=== PATIENT | female | born 1960 | race Caucasian/White ===

== ENCOUNTER 2019-01-21 18:58 | Inpatient (IN) | payer MEDICAID ==
[2019-01-21] MEDS ORDERED: LORazepam 2 MG/ML SDV IVPUSH ONE (19:40)
--- NOTE | 2019-01-21 19:48 | EDM.PDOC ---
ED HPI GENERAL MEDICAL PROBLEM - General Chief Complaint: General Stated Complaint: BROKEN RIB Time Seen by Provider: 01/21/19 19:35 Source of Information: Reports: Patient History Limitations: Reports: No Limitations - History of Present Illness INITIAL COMMENTS - FREE TEXT/NARRATIVE: Ita is a 58 year old female with a hx of chronic pain, presents to the ED today with c/o left anterior rib pain. Patient was seen in clinic yesterday diagnosed with rib fracture. She was discharged home, patient twisted today and pain became unbearable, unrelieved with her chronic oxycodone at home. Patient denies any fever, has had productive cough for the last week which is different from her non productive cough she typically has from smoking. Patient denies every falling, states when she coughed hard yesterday she heard the "crack" and that is when she developed the initial rib pain. Patient denies any hemoptysis. Patient was given 25 mcg of Fentanyl prior to arrival with improvement in her symptoms. Onset: Today, Sudden Treatments HOME HEALTH ADMINISTRATOR: Reports: IV/IO, Other (see below) Other Treatments HOME HEALTH ADMINISTRATOR: Fent 25mcg IVP Left Rib Area Pain Score (Numeric/FACES): 8 - Related Data Allergies Allergy/AdvReac Type Severity Reaction Status Date / Time meperidine [From Demerol] Allergy Hives Verified 01/21/19 19:16 prochlorperazine Allergy Cannot Verified 01/21/19 19:16 [From Compazine] Remember Sulfa (Sulfonamide Allergy Hives Verified 01/21/19 19:16 Antibiotics) Home Meds: Home Meds Amitriptyline HCl 200 mg PO BEDTIME 01/21/19 [History] Cyclobenzaprine [Flexeril] 10 mg PO TID 01/21/19 [History] Ibuprofen 800 mg PO Q8HR PRN 01/21/19 [History] Levothyroxine Sodium [Levoxyl] 50 mcg PO DAILY 01/21/19 [History] Liraglutide [Victoza 3-Brigido] 1.2 mg SQ DAILY 01/21/19 [History] Propranolol HCl 40 mg PO BID 01/21/19 [History] Pyridostigmine [Mestinon] 60 mg PO TID 01/21/19 [History] atorvaSTATin Calcium [Atorvastatin Calcium] 10 mg PO DAILY 01/21/19 [History] hydrOXYzine HCl [hydrOXYzine] 25 mg PO DAILY 01/21/19 [History] metFORMIN HCl [Metformin HCl] 1,000 mg PO BID 01/21/19 [History] oxyCODONE 10 mg PO Q6HR PRN 01/21/19 [History] Social & Family History - Tobacco Use Smoking Status *Q: Current Every Day Smoker Years of Tobacco use: 40 Packs/Tins Daily: 1 Second Hand Smoke Exposure: No - Caffeine Use Caffeine Use: Reports: Coffee - Recreational Drug Use Recreational Drug Use: No ED ROS GENERAL - Review of Systems Review Of Systems: ROS reveals no pertinent complaints other than HPI. ED EXAM, GENERAL - Physical Exam Exam: See Below Exam Limited By: No Limitations General Appearance: Alert, WD/WN, Other (appear uncomfortable) Head: Atraumatic Respiratory/Chest: Other (course lungs bilaterally, anterior lower left ribs are tender to palpation,no step offs or crepitus, no evidence of ecchymosis) Cardiovascular: Regular Rate, Rhythm, No Murmur Extremities: Other (patient has CAM boot on right LE, dressing on left knee) Neurological: Alert, Oriented Course - Vital Signs Last Recorded V/S: Last Vital Signs Temp 35.8 C 01/21/19 19:06 Pulse 62 01/21/19 21:05 Resp 12 01/21/19 21:05 BP 120/76 01/21/19 21:05 Pulse Ox 94 L 01/21/19 21:05 Ita is a 58 year old female, hx of myasthenia gravis, hypothyroidism, Chronic bilateral ankle pain, on chronic oxycodone who presents to the ED today with complaints of severe left rib pain. Please refer to HPI and focused exam. Patient on exam is tender to left anterior lower rib region, lungs are course but likely this is coming from upper airways as patient sounds congested. Patient was given IV Ativan here which did help with pain/symptoms. CT of chest obtained to rule out any more significant findings, CT scan returns with mildly displaced lateral rib fractures of left 5th, 6th, 7th left rib with 2.1 x 1.7 cm spiculated mass at the right lung that is worrisome for lung cancer, PET CT recommended. Pulmonary emphysema with small pericardial and left pleural effusion. There is a 2 cm incidental cystic lesion at the tail of the pancreas, radiology recommends further imaging, preferable with MRI/MRCP. Patient sleepy here after Ativan. I feel with her chronic pain, course lungs and multiple rib fractures that she should come in overnight for paint control and ongoing monitoring. Daughter here reports that patient is the primary rn progressive care for her who has COPD and mother in law with dementia who is a fall risk. Patient spoke with and he agrees patient should stay here. I did discuss CT findings with patient and daughter and let them know that the lung mass concerns and pancreatic concerns will have to be addressed with PCP this week for further testing/imaging. I discussed patient's case with hospitalist, Officer, he has accepted patient for admission, patient and daughter agreeable and patient admitted in stable condition. - Orders/Labs/Meds Orders: Active Orders 24 hr Category Date Time Status RT Aerosol Therapy [RC] ASDIRECTED Care 01/21/19 21:21 Ordered Meds: Medications Discontinued Medications Generic Name Dose Route Start Last Admin Trade Name Freq PRN Reason Stop Dose Admin Albuterol/Ipratropium 3 ml 01/21/19 21:20 Duoneb 3.0-0.5 Mg/3 Ml NEB 01/21/19 21:21 ONETIME ONE Lorazepam 1 mg 01/21/19 19:40 01/21/19 19:59 Ativan IVPUSH 01/21/19 19:41 1 mg ONETIME ONE Administration Departure - Departure Time of Disposition: 22:00 Disposition: Admitted As Inpatient 66 Condition: Fair Clinical Impression: Mass of right lung, Pleural effusion, Pericardial effusion, Cystic mass of pancreas Ribs, multiple fractures Qualifiers: Encounter type: initial encounter Fracture type: closed Laterality: left Qualified Code(s): S22.42XA - Multiple fractures of ribs, left side, initial encounter for closed fracture Chronic pain Qualifiers: Chronic pain type: chronic pain syndrome Qualified Code(s): G89.4 - Chronic pain syndrome - Discharge Information Referrals: Cesar Iglesias MD [Primary Care Provider] - Forms: ED Department Discharge - My Orders Last 24 Hours: My Active Orders 01/21/19 21:21 RT Aerosol Therapy [RC] ASDIRECTED - Assessment/Plan Last 24 Hours: My Active Orders 01/21/19 21:21 RT Aerosol Therapy [RC] ASDIRECTED
--- NOTE | 2019-01-21 21:05 | CRLCT ---
INDICATION: Left anterior chest wall pain. TECHNIQUE: Unenhanced helical CT of the chest. Sagittal and coronal reformats generated.Please note that all CT scans at this facility status modulation, iterative reconstruction and/or weight- based dosing when appropriate to reduce radiation dose to as low as reasonably achievable. FINDINGS: Median sternotomy wires are present and there are multiple surgical clips within the mediastinum extending into the retrosternal region. The partially visualized thyroid gland is homogeneous in density. Predominantly centrilobular pulmonary emphysematous changes most prominent in the upper lobes. There is a spiculated 2.1 x 1.7 cm mass at the right lung apex worrisome for a lung cancer. No pneumothorax is identified. Areas of subsegmental atelectasis are present particularly at the left lung base. Small pericardial an left pleural effusion. Incidental 2 cm cystic mass the tail of the pancreas. Mildly displaced lateral 5th, 6th and 7th left-sided rib fractures are apparent. IMPRESSION: 1. Mildly displaced lateral left 5th, 6th and 7th rib fractures. 2. 2.1 x 1.7 cm spiculated mass at the right lung may packs worrisome for a lung cancer. Consider PET-CT. 3. Pulmonary emphysema. 4. Small pericardial left pleural effusions. 5. 2 cm incidental cystic lesion at the tail of the pancreas. Consider further imaging characterization preferably with MRI/MRCP. Please note that all CT scans at this facility use dose modulation, iterative reconstruction, and/or weight-based dosing when appropriate to reduce radiation dose to as low as reasonably achievable. Dictated by Ferdinand Walters MD @ Jan 21 2019 8:48PM Signed by Dr. Ferdinand Walters @ Jan 21 2019 9:04PM
[2019-01-21] MEDS ORDERED: Albuterol/Ipratropium 3.0-0.5 MG/3 ML Neb Soln NEB ONE (21:20)
[2019-01-21] MEDS ORDERED: Sodium Chloride 0.9% 10 ML Syringe FLUSH PRN (22:25)
[2019-01-21] MEDS ORDERED: Ondansetron 4 MG/2 ML SDV IV PRN (22:25)
--- NOTE | 2019-01-21 22:38 | PCM.HP ---
H&P History of Present Illness - General Date of Service: 01/21/19 Admit Problem/Dx: Admission Diagnosis/Problem Admission Diagnosis/Problem Pain aggravated by breathing Source of Information: Patient, Family, RN Notes Reviewed History Limitations: Reports: No Limitations - History of Present Illness Initial Comments - Free Text/Narative: 58-year-old female presented to the emergency department today complaint of chest pain, she was evaluated in the clinic earlier today and found to have a rib fracture #5 on chest x-ray was treated symptomatically. However she believes she may have coughed or twisted wrong sudden onset of severe chest pain on the left side reported to the emergency department via EMS services. Under evaluation by emergency department staff which included a CAT scan of the chest revealed rib fractures at 56 and 7 minimally displaced also noted a lung mass in the right apex. She does have an extensive smoking history as well as emphysema, and diabetes also myasthenia gravis with a history of thymectomy, hypothyroidism and opioid dependence. Left Rib Area Pain Score (Numeric/FACES): 8 - Related Data Allergies/Adverse Reactions: Allergies Allergy/AdvReac Type Severity Reaction Status Date / Time meperidine [From Demerol] Allergy Hives Verified 01/21/19 19:16 prochlorperazine Allergy Cannot Verified 01/21/19 19:16 [From Compazine] Remember Sulfa (Sulfonamide Allergy Hives Verified 01/21/19 19:16 Antibiotics) Home Medications: Home Meds Amitriptyline HCl 200 mg PO BEDTIME 01/21/19 [History] Cyclobenzaprine [Flexeril] 10 mg PO TID 01/21/19 [History] Ibuprofen 800 mg PO Q8HR PRN 01/21/19 [History] Levothyroxine Sodium [Levoxyl] 50 mcg PO DAILY 01/21/19 [History] Liraglutide [Victoza 3-Brigido] 1.2 mg SQ DAILY 01/21/19 [History] Propranolol HCl 40 mg PO BID 01/21/19 [History] Pyridostigmine [Mestinon] 60 mg PO TID 01/21/19 [History] atorvaSTATin Calcium [Atorvastatin Calcium] 10 mg PO DAILY 01/21/19 [History] hydrOXYzine HCl [hydrOXYzine] 25 mg PO DAILY 01/21/19 [History] metFORMIN HCl [Metformin HCl] 1,000 mg PO BID 01/21/19 [History] oxyCODONE 10 mg PO Q6HR PRN 01/21/19 [History] Past Medical History HEENT History: Reports: Hard of Hearing, Impaired Vision Cardiovascular History: Reports: High Cholesterol INDUSTRIAL INSULATOR History: Reports: Musculoskeletal History: Reports: Osteoarthritis, Other (See Below) Other Musculoskeletal History: TMJ Neurological History: Reports: Migraines, Other (See Below) Other Neuro History: Myasthenia gravis Psychiatric History: Reports: Addiction, Other (See Below) Other Psychiatric History: tobacco abuse Endocrine/Metabolic History: Reports: Diabetes, Type II, Hypothyroidism - Infectious Disease History Infectious Disease History: Reports: Chicken Pox - Past Surgical History Musculoskeletal Surgical History: Reports: Other (See Below) Other Musculoskeletal Surgeries/Procedures:: right foot surgery Social & Family History - Family History Family Medical History: Unobtainable - Tobacco Use Smoking Status *Q: Current Every Day Smoker Years of Tobacco use: 40 Packs/Tins Daily: 1 Second Hand Smoke Exposure: No - Caffeine Use Caffeine Use: Reports: Coffee - Recreational Drug Use Recreational Drug Use: No H&P Review of Systems - Review of Systems: Review Of Systems: See Below General: Reports: No Symptoms HEENT: Reports: No Symptoms Pulmonary: Reports: Shortness of Breath (With a deep breath) Cardiovascular: Reports: Chest Pain, Dyspnea on Exertion Gastrointestinal: Reports: No Symptoms Genitourinary: Reports: No Symptoms Musculoskeletal: Reports: No Symptoms Skin: Reports: No Symptoms Psychiatric: Reports: No Symptoms Neurological: Reports: No Symptoms Exam - Exam Exam: See Below - Vital Signs Vital Signs: Last Vital Signs Temp 96.4 F 01/21/19 19:06 Pulse 62 01/21/19 21:48 Resp 12 01/21/19 21:05 BP 120/82 01/21/19 21:48 Pulse Ox 97 01/21/19 21:48 Weight: 68.039 kg - Exam Physical Exam Comments:: General: Female, not in any distress, appears older than stated age, alert and oriented x3 HEENT: head is atraumatic normocephalic, eyes pupils equal round reactive to light, sclera clear no conjunctivitis appreciated. Ears tympanic membranes clear and bacon landmarks and light reflex are present bilaterally canals are clear. Nose no septal deviation, nares are clear, no blood present. Mouth mucosa is moist and pink no erythema or exudate noted in soft palate, tongue is midline uvula is midline, dentition is intact. Neck: Supple no thyromegaly no tracheal deviation. Nodes: Cervical nodes subclavicular nodes nontender no palpable lymphadenopathy noted. Lungs: Breath sounds are distant no adventitious noises are appreciated CV: Regular rate and rhythm S1 and S2 appreciated no murmurs rubs or gallops noted. Abdomen: Soft, nontender, no palpable masses or organomegaly appreciated, no distention no guarding bowel sounds are present, Neuro: GCS 15 Skin: Warm and dry, intact Extremities: No lower extremity edema appreciated on the left, she is in an ankle boot cam walker on the right, pedal pulse is +2. - Problem List (1) Cystic mass of pancreas SNOMED Code(s): 40442399 ICD Code: K86.2 - CYST OF PANCREAS Status: Acute Priority: Medium Current Visit: Yes (2) Mass of right lung SNOMED Code(s): 777290456 ICD Code: R91.8 - OTHER NONSPECIFIC ABNORMAL FINDING OF LUNG FIELD Status: Acute Priority: Medium Current Visit: Yes (3) Ribs, multiple fractures SNOMED Code(s): 2601721 ICD Code: S22.49XA - MULTIPLE FRACTURES OF RIBS, UNSP SIDE, INIT FOR CLOS FX Status: Acute Priority: High Current Visit: Yes Qualifiers: Encounter type: initial encounter Fracture type: closed Laterality: left Qualified Code(s): S22.42XA - Multiple fractures of ribs, left side, initial encounter for closed fracture Problem List Initiated/Reviewed/Updated: Yes Orders Last 24hrs: Active Orders 24 hr Category Date Time Status Patient Status [ADT] Routine ADT 01/21/19 22:25 Ordered Height and Weight [RC] UPON Care 01/21/19 22:25 Ordered Intake and Output [RC] QSHIFT Care 01/21/19 22:27 Ordered Oxygen Therapy [RC] PRN Care 01/21/19 22:25 Ordered RT Aerosol Therapy [RC] ASDIRECTED Care 01/21/19 21:21 Active Up With Assistance [RC] ASDIRECTED Care 01/21/19 22:25 Ordered VTE/DVT Education [RC] Per Unit Routine Care 01/21/19 22:25 Ordered Vital Signs [RC] Q4H Care 01/21/19 22:25 Ordered Regular Diet [DIET] Diet 01/22/19 Breakfast Ordered CBC WITH AUTO DIFF [HEME] AM Lab 01/22/19 05:11 Ordered COMPREHENSIVE METABOLIC PN,CMP [CHEM] AM Lab 01/22/19 05:11 Ordered Amitriptyline HCl [Amitriptyline HCl] Med 01/22/19 21:00 Ordered 200 mg PO BEDTIME Bisacodyl [Dulcolax] Med 01/21/19 22:25 Ordered 5 mg PO DAILY PRN Cyclobenzaprine [Flexeril] Med 01/22/19 09:00 Ordered 10 mg PO TID Enoxaparin [Lovenox] Med 01/22/19 09:00 Ordered 40 mg SUBCUT DAILY Ibuprofen [Motrin] Med 01/21/19 22:29 Ordered 800 mg PO Q8HR PRN LORazepam [Ativan] Med 01/21/19 22:25 Ordered 1 mg IV Q6H PRN Levothyroxine [Synthroid] Med 01/22/19 09:00 Ordered 50 mcg PO DAILY Liraglutide [Victoza] Med 01/22/19 09:00 Ordered 1.2 mg SUBCUT DAILY Ondansetron [Zofran] Med 01/21/19 22:25 Ordered 4 mg IV Q4H PRN Propranolol HCl [Propranolol HCl] Med 01/22/19 09:00 Ordered 40 mg PO BID Pyridostigmine [Mestinon] Med 01/22/19 09:00 Ordered 60 mg PO TID Sodium Chloride 0.9% [Saline Flush] Med 01/21/19 22:25 Ordered 10 ml FLUSH ASDIRECTED PRN atorvaSTATin [Lipitor] Med 01/22/19 09:00 Ordered 10 mg PO DAILY fentaNYL [Sublimaze] Med 01/21/19 22:32 Ordered 50 mcg IVPUSH Q6H PRN hydrOXYzine HCl [Atarax] Med 01/22/19 09:00 Ordered 25 mg PO DAILY metFORMIN HCl [Metformin HCl] Med 01/22/19 09:00 Ordered 1,000 mg PO BID oxyCODONE [oxyCODONE] Med 01/21/19 22:29 Ordered 10 mg PO Q6HR PRN Saline Lock Insert [OM.PC] Routine Oth 01/21/19 22:25 Ordered Resuscitation Status Routine Resus Stat 01/21/19 22:25 Ordered Assessment/Plan Comment:: ASSESSMENT AND PLAN Multiple rib fractures 5, 6 and 7 with minimal displacement - unclear etiology for the fractures she is on chronic opiates so difficulty controlling pain fentanyl provided by EMS services as well as Ativan in the emergency department did work. -Continue pain control with fentanyl 50 mics every 6 hours when necessary Lung mass apex right lung - this is a 2.1 x 1.7 mm spiculated mass concerning for neoplasm, workup to be done in outpatient setting would include PET scan and biopsy Cystic mass detail the pancreas - unclear etiology further workup can be done as an outpatient Myasthenia gravis - stable for many years on home medications will continue MAINTENANCE ISSUES -DVT prophylaxis; Lovenox 40 mg subcutaneous daily -GI prophylaxis; not indicated at this time -Killian catheter; not indicated at this time -Nutrition; regular diet -Nicotine dependence; NicoDerm patch CODE STATUS-FULL CODE Admission justification - this patient does not meet inpatient criteria will be admitted for observation DISPOSITION - anticipate discharge to home after the hospital stay. PRIMARY CARE PROVIDER - Dr. Johnna Kat Officer
[2019-01-21] MEDS: oxyCODONE 5 MG Tab PO PRN (23:24)
[2019-01-22] MEDS: fentaNYL 100 MCG/2 ML SDV IVPUSH PRN ×2 (03:03→09:25)
[2019-01-22] MEDS: oxyCODONE 5 MG Tab PO PRN ×4 (05:30→23:29)
[2019-01-22] MEDS: Ibuprofen 800 MG Tab PO PRN ×3 (06:15→22:08)
[2019-01-22] MEDS: metFORMIN 500 MG Tab PO SCH ×2 (07:54→17:07)
[2019-01-22] MEDS: Levothyroxine 50 MCG Tab PO SCH (07:54)
[2019-01-22] MEDS: Cyclobenzaprine 10 MG Tab PO SCH ×3 (08:18→20:23)
[2019-01-22] MEDS: Nicotine 21 MG/24 Hr Patch TRDERM SCH (08:20)
[2019-01-22] MEDS: atorvaSTATin 10 MG Tab PO SCH (08:22)
[2019-01-22] MEDS: Propranolol 40 MG Tab PO SCH ×2 (08:22→20:23)
[2019-01-22] MEDS: Enoxaparin 40 MG/0.4 ML Syringe SUBCUT SCH (08:23)
[2019-01-22] MEDS: Liraglutide (rDNA Origin) 0.6 MG/0.1 ML 3 ML Pen SUBCUT SCH (08:24)
--- NOTE | 2019-01-22 09:31 | PCM.PN ---
- General Info Date of Service: 01/22/19 Subjective Update: No acute events overnight. Pain is moderately well controlled at this time. Fairly comfortable at rest but in a fair amount of pain when she does move or cough. No fevers. No nausea. Pain is much better today than yesterday but still pretty uncomfortable and not moving well. Functional Status: Reports: Pain Controlled, Tolerating Diet - Review of Systems Pulmonary: Reports: Cough Cardiovascular: Reports: Chest Pain - Patient Data Vitals - Most Recent: Last Vital Signs Temp 35.9 C 01/22/19 07:00 Pulse 70 01/22/19 07:00 Resp 16 01/22/19 07:00 BP 128/75 01/22/19 07:00 Pulse Ox 92 L 01/22/19 07:00 Weight - Most Recent: 68 kg I&O - Last 24 Hours: Intake & Output 01/21/19 01/22/19 01/22/19 22:59 06:59 14:59 Output Total 400 Balance -400 Lab Results Last 24 Hours: Laboratory Results - last 24 hr 01/22/19 01/22/19 Range/Units 05:30 05:30 WBC 11.0 (4.5-11.0) K/uL RBC 4.44 (3.30-5.50) M/uL Hgb 13.6 (12.0-15.0) g/dL Hct 37.8 (36.0-48.0) % MCV 85 (80-98) fL MCH 31 (27-31) pg MCHC 36 (32-36) % Plt Count 360 (150-400) K/uL Neut % (Auto) 71 H (36-66) % Lymph % (Auto) 15 L (24-44) % [place] % (Auto) 6 (2-6) % Eos % (Auto) 8 H (2-4) % Baso % (Auto) 0 (0-1) % Sodium 120 L (140-148) mmol/L Potassium 4.5 (3.6-5.2) mmol/L Chloride 84 L (100-108) mmol/L Carbon Dioxide 28 (21-32) mmol/L Anion Gap 12.5 (5.0-14.0) mmol/L BUN 10 (7-18) mg/dL Creatinine 0.6 (0.6-1.0) mg/dL Est Cr Clr Drug Dosing 83.05 mL/min Estimated GFR (MDRD) > 60 (>60) Glucose 121 H (74-106) mg/dL Calcium 8.9 (8.5-10.1) mg/dL Total Bilirubin 0.4 (0.2-1.0) mg/dL AST 30 (15-37) U/L ALT 36 (12-78) U/L Alkaline Phosphatase 88 (46-116) U/L Total Protein 6.9 (6.4-8.2) g/dL Albumin 3.6 (3.4-5.0) g/dL Globulin 3.3 (2.3-3.5) g/dL Albumin/Globulin Ratio 1.1 L (1.2-2.2) Med Orders - Current: Current Medications Amitriptyline HCl (Elavil) 200 mg PO BEDTIME [facility] Atorvastatin Calcium (Lipitor) 10 mg PO DAILY [facility] Last Admin: 01/22/19 08:22 Dose: 10 mg Bisacodyl (Dulcolax) 5 mg PO DAILY PRN PRN Reason: Constipation Cyclobenzaprine HCl (Flexeril) 10 mg PO TID [facility] Last Admin: 01/22/19 08:18 Dose: 10 mg Enoxaparin Sodium (Lovenox) 40 mg SUBCUT DAILY [facility] Last Admin: 01/22/19 08:23 Dose: 40 mg Fentanyl (Sublimaze) 50 mcg IVPUSH Q6H PRN PRN Reason: Pain (severe 7-10) Last Admin: 01/22/19 09:25 Dose: 50 mcg Hydroxyzine HCl (Atarax) 25 mg PO Q8H PRN PRN Reason: Itching Ibuprofen (Motrin) 800 mg PO Q8HR PRN PRN Reason: Pain (moderate 4-6) Last Admin: 01/22/19 06:15 Dose: 800 mg Levothyroxine Sodium (Synthroid) 50 mcg PO ACBREAKFAST [facility] Last Admin: 01/22/19 07:54 Dose: 50 mcg Liraglutide (Victoza) 1.2 mg SUBCUT DAILY [facility] Last Admin: 01/22/19 08:24 Dose: 1.2 mg Lorazepam (Ativan) 1 mg IV Q6H PRN PRN Reason: Nausea/Vomiting Metformin HCl (Glucophage) 1,000 mg PO BIDMEALS [facility] Last Admin: 01/22/19 07:54 Dose: 1,000 mg Nicotine (Habitrol) 21 mg TRDERM DAILY [facility] Last Admin: 01/22/19 08:20 Dose: 21 mg Ondansetron HCl (Zofran) 4 mg IV Q4H PRN PRN Reason: Nausea/Vomiting Oxycodone HCl (Oxycodone) 10 mg PO Q6H PRN PRN Reason: Pain (moderate 4-6) Last Admin: 01/22/19 05:30 Dose: 10 mg Propranolol HCl (Inderal) 40 mg PO BID [facility] Last Admin: 01/22/19 08:22 Dose: 40 mg Pyridostigmine [place] (Mestinon) 60 mg PO TID [facility] Last Admin: 01/22/19 08:23 Dose: 60 mg Sodium Chloride (Saline Flush) 10 ml FLUSH ASDIRECTED PRN PRN Reason: Keep Vein Open Discontinued Medications Albuterol/Ipratropium (Duoneb 3.0-0.5 Mg/3 Ml) 3 ml NEB ONETIME ONE Stop: 01/21/19 21:21 Last Admin: 01/21/19 21:42 Dose: 3 ml Lorazepam (Ativan) 1 mg IVPUSH ONETIME ONE Stop: 01/21/19 19:41 Last Admin: 01/21/19 19:59 Dose: 1 mg - Exam Quality Assessment: No: Supplemental Oxygen General: Alert, Oriented, Cooperative, No Acute Distress Lungs: Normal Respiratory Effort, Rhonchi (mild upper resp ) Cardiovascular: Regular Rate, Regular Rhythm GI/Abdominal Exam: Soft, No Distention Extremities: No Pedal Edema. No: Increased Warmth Psy/Mental Status: Alert, Normal Affect - Problem List Review Problem List Initiated/Reviewed/Updated: Yes - My Orders Last 24 Hours: My Active Orders 01/22/19 09:29 PT Evaluation and Treatment [CONS] Routine 01/23/19 05:00 BASIC METABOLIC PANEL,BMP [CHEM] Timed CBC W/O DIFF,HEMOGRAM [HEME] Timed (1) - Plan Plan:: ASSESSMENT AND PLAN Multiple left-sided rib fractures 5, 6 and 7 with minimal displacement - Decent pain control at this time but still some room for improvement. Not getting around very well with pain. -Acetaminophen for mild pain and oxycodone for moderate pain -Fentanyl for severe pain Lung mass apex right lung - this is a 2.1 x 1.7 mm spiculated mass concerning for neoplasm, workup to be done in outpatient setting would include PET scan and possibly biopsy. -Outpatient follow-up Cystic mass detail the pancreas - unclear etiology, further workup can be done as an outpatient. -Outpatient MRI Myasthenia gravis - stable for many years on home medications. -Continue home meds MAINTENANCE ISSUES -DVT prophylaxis; Lovenox 40 mg subcutaneous daily -GI prophylaxis; not indicated at this time -Killian catheter; not indicated at this time -Nutrition; regular diet -Nicotine dependence; NicoDerm patch CODE STATUS-FULL CODE Admission justification - this patient does not meet inpatient criteria will be admitted for observation DISPOSITION - anticipate discharge to home after the hospital stay. PRIMARY CARE PROVIDER - Dr. Johnna Quintanilla MD
[2019-01-22] MEDS: Bisacodyl 5 MG Tab PO PRN (09:37)
[2019-01-22] MEDS: LORazepam 2 MG/ML SDV IV PRN ×2 (11:29→21:47)
[2019-01-22] MEDS: guaiFENesin 600 MG Tab.ER PO SCH ×2 (12:08→20:23)
[2019-01-22] MEDS: hydrOXYzine HCl 25 MG Tab PO PRN (13:00)
[2019-01-23] MEDS: oxyCODONE 5 MG Tab PO PRN ×3 (05:15→18:13)
[2019-01-23] MEDS: fentaNYL 100 MCG/2 ML SDV IVPUSH PRN ×2 (08:29→16:24)
[2019-01-23] MEDS: Ibuprofen 800 MG Tab PO PRN ×2 (08:34→17:10)
[2019-01-23] MEDS: Cyclobenzaprine 10 MG Tab PO SCH ×3 (08:36→20:53)
[2019-01-23] MEDS: metFORMIN 500 MG Tab PO SCH ×2 (08:37→17:10)
[2019-01-23] MEDS: Propranolol 40 MG Tab PO SCH ×2 (08:37→20:53)
[2019-01-23] MEDS: atorvaSTATin 10 MG Tab PO SCH (08:37)
[2019-01-23] MEDS: Levothyroxine 50 MCG Tab PO SCH (08:37)
[2019-01-23] MEDS: guaiFENesin 600 MG Tab.ER PO SCH ×2 (08:37→20:54)
[2019-01-23] MEDS: Liraglutide (rDNA Origin) 0.6 MG/0.1 ML 3 ML Pen SUBCUT SCH (08:38)
[2019-01-23] MEDS: Nicotine 21 MG/24 Hr Patch TRDERM SCH (08:38)
[2019-01-23] MEDS ORDERED: Sodium Chloride 0.9% 1,000 ML IV SCH (09:00)
[2019-01-23] MEDS ORDERED: predniSONE 20 MG Tab PO ONE (09:03)
--- NOTE | 2019-01-23 09:06 | PCM.PN ---
- General Info Date of Service: 01/23/19 Subjective Update: No acute events overnight though her pain has not been well controlled. She has required doses of IV pain medication following prolonged coughing spells. She has a loose cough but does not produce much sputum. Cough is worse than usual for the past few days. She has not had any fevers but does feel more short of breath than baseline. Still having moderate or moderately severe pain in the left chest where she has her rib fractures. Sodium level has dropped down to 116 today. Functional Status: Reports: Tolerating Diet. Denies: Pain Controlled - Review of Systems General: Denies: Fever Pulmonary: Reports: Shortness of Breath, Cough Cardiovascular: Reports: Chest Pain - Patient Data Vitals - Most Recent: Last Vital Signs Temp 35.9 C 01/23/19 03:52 Pulse 55 L 01/23/19 03:52 Resp 12 01/23/19 03:52 BP 112/63 01/23/19 03:52 Pulse Ox 91 L 01/23/19 03:52 Weight - Most Recent: 68 kg I&O - Last 24 Hours: Intake & Output 01/22/19 01/23/19 01/23/19 22:59 06:59 14:59 Intake Total 1200 Output Total 800 700 Balance 400 -700 Lab Results Last 24 Hours: Laboratory Results - last 24 hr 01/23/19 01/23/19 Range/Units 05:05 05:05 WBC 8.1 (4.5-11.0) K/uL RBC 4.16 (3.30-5.50) M/uL Hgb 12.6 (12.0-15.0) g/dL Hct 35.4 L (36.0-48.0) % MCV 85 (80-98) fL MCH 30 (27-31) pg MCHC 36 (32-36) % Plt Count 323 (150-400) K/uL Sodium 116 L* (140-148) mmol/L Potassium 4.1 (3.6-5.2) mmol/L Chloride 83 L (100-108) mmol/L Carbon Dioxide 27 (21-32) mmol/L Anion Gap 10.1 (5.0-14.0) mmol/L BUN 8 (7-18) mg/dL Creatinine 0.6 (0.6-1.0) mg/dL Est Cr Clr Drug Dosing 83.05 mL/min Estimated GFR (MDRD) > 60 (>60) Glucose 128 H (74-106) mg/dL Calcium 8.6 (8.5-10.1) mg/dL Med Orders - Current: Current Medications Amitriptyline HCl (Elavil) 200 mg PO BEDTIME COUNT INCLUDES [facility] Last Admin: 01/22/19 20:23 Dose: 200 mg Atorvastatin Calcium (Lipitor) 10 mg PO DAILY COUNT INCLUDES [facility] Last Admin: 01/23/19 08:37 Dose: 10 mg Bisacodyl (Dulcolax) 5 mg PO DAILY PRN PRN Reason: Constipation Last Admin: 01/22/19 09:37 Dose: 5 mg Cyclobenzaprine HCl (Flexeril) 10 mg PO TID COUNT [facility]CLUDES [facility] Last Admin: 01/23/19 08:36 Dose: 10 mg Enoxaparin Sodium (Lovenox) 40 mg SUBCUT DAILY COUNT [facility]CLUDES [facility] Last Admin: 01/22/19 08:23 Dose: 40 mg Fentanyl (Sublimaze) 50 mcg IVPUSH Q6H PRN PRN Reason: Pain (severe 7-10) Last Admin: 01/23/19 08:29 Dose: 50 mcg Guaifenesin (Mucinex) 600 mg PO BID COUNT [facility]CLUDES [facility] Last Admin: 01/23/19 08:37 Dose: 600 mg Hydroxyzine HCl (Atarax) 25 mg PO Q8H PRN PRN Reason: Itching Last Admin: 01/22/19 13:00 Dose: 25 mg Ibuprofen (Motrin) 800 mg PO Q8HR PRN PRN Reason: Pain (moderate 4-6) Last Admin: 01/23/19 08:34 Dose: 800 mg Levothyroxine Sodium (Synthroid) 50 mcg PO ACBREAKFAST COUNT INCLUDES [facility] Last Admin: 01/23/19 08:37 Dose: 50 mcg Liraglutide (Victoza) 1.2 mg SUBCUT DAILY COUNT [facility]CLUDES [facility] Last Admin: 01/23/19 08:38 Dose: 1.2 mg Lorazepam (Ativan) 1 mg IV Q6H PRN PRN Reason: Nausea/Vomiting Last Admin: 01/22/19 21:47 Dose: 1 mg Metformin HCl (Glucophage) 1,000 mg PO BIDMEALS COUNT INCLUDES [facility] Last Admin: 01/23/19 08:37 Dose: 1,000 mg Nicotine (Habitrol) 21 mg TRDERM DAILY COUNT [facility]CLUDES [facility] Last Admin: 01/23/19 08:38 Dose: 21 mg Ondansetron HCl (Zofran) 4 mg IV Q4H PRN PRN Reason: Nausea/Vomiting Oxycodone HCl (Oxycodone) 10 mg PO Q6H PRN PRN Reason: Pain (moderate 4-6) Last Admin: 01/23/19 05:15 Dose: 10 mg Propranolol HCl (Inderal) 40 mg PO BID COUNT [facility]CLUDES [facility] Last Admin: 01/23/19 08:37 Dose: 40 mg Pyridostigmine [place] (Mestinon) 60 mg PO TID COUNT [facility]CLUDES [facility] Last Admin: 01/23/19 08:36 Dose: 60 mg Sodium Chloride (Saline Flush) 10 ml FLUSH ASDIRECTED PRN PRN Reason: Keep Vein Open Discontinued Medications Albuterol/Ipratropium (Duoneb 3.0-0.5 Mg/3 Ml) 3 ml NEB ONETIME ONE Stop: 01/21/19 21:21 Last Admin: 01/21/19 21:42 Dose: 3 ml Lorazepam (Ativan) 1 mg IVPUSH ONETIME ONE Stop: 01/21/19 19:41 Last Admin: 01/21/19 19:59 Dose: 1 mg - Exam Quality Assessment: No: Supplemental Oxygen General: Alert, Oriented, Cooperative, Mild Distress Lungs: Normal Respiratory Effort, Rhonchi (diffuse upper airway ), Wheezing ( mild right lung ) Cardiovascular: Regular Rate, Regular Rhythm GI/Abdominal Exam: Soft, No Distention Extremities: No Pedal Edema. No: Increased Warmth Skin: Warm, Dry Psy/Mental Status: Alert, Normal Affect - Problem List Review Problem List Initiated/Reviewed/Updated: Yes - My Orders Last 24 Hours: My Active Orders 01/22/19 09:29 PT Evaluation and Treatment [CONS] Routine 01/22/19 12:00 guaiFENesin [Mucinex] 600 mg PO BID 01/23/19 09:00 Sodium Chloride 0.9% [Normal Saline] 1,000 ml IV ASDIRECTED 01/23/19 09:02 Blood Glucose Check, Bedside [RC] WITHMEALSANDBED Communication Order [RC] PRN Communication Order [RC] PRN Diabetes Education [RC] Click to Edit Notify Provider [RC] PRN RT Aerosol Therapy [RC] ASDIRECTED 01/23/19 09:03 predniSONE 20 mg PO ONETIME ONE 01/23/19 09:04 Admission Status [Patient Status] [ADT] Routine 01/23/19 09:15 Doxycycline [Vibramycin] 100 mg PO BID 01/23/19 11:00 Albuterol/Ipratropium [DuoNeb 3.0-0.5 MG/3 ML] 3 ml NEB QIDRT Insulin Lispro [HumaLOG] See Protocol SUBCUT QIDACANDBED 01/23/19 15:00 SODIUM,NA [CHEM] Timed 01/24/19 05:00 BASIC METABOLIC PANEL,BMP [CHEM] Timed CBC W/O DIFF,HEMOGRAM [HEME] Timed (1) 01/24/19 08:00 predniSONE 20 mg PO WITHBREAKFAST - Plan Plan:: ASSESSMENT AND PLAN Severe hyponatremia - patient is either euvolemic or hypovolemic. Could be related to her probable lung cancer or dehydration. No evidence for congestive heart failure or hypervolemia. Level has dropped despite previous treatment. -1 L of normal saline over 2 hours then repeat sodium level Acute bronchitis, suspected - increased cough from baseline as well as some sputum production. Also increased dyspnea compared to baseline. -Doxycycline -Prednisone 20 mg daily for 5 days Multiple left-sided rib fractures 5, 6 and 7 with minimal displacement - pain control suboptimal during coughing spells but fairly comfortable at rest. -Acetaminophen for mild pain and oxycodone for moderate pain -Fentanyl for severe pain Lung mass apex right lung - this is a 2.1 x 1.7 mm spiculated mass concerning for neoplasm, workup to be done in outpatient setting would include PET scan and possibly biopsy. -Outpatient follow-up Cystic mass detail the pancreas - unclear etiology, further workup can be done as an outpatient. -Outpatient MRI Myasthenia gravis - stable for many years on home medications. -Continue home meds MAINTENANCE ISSUES -DVT prophylaxis; Lovenox 40 mg subcutaneous daily -GI prophylaxis; not indicated at this time -Killian catheter; not indicated at this time -Nutrition; regular diet -Nicotine dependence; NicoDerm patch CODE STATUS-FULL CODE Admission justification - she was initially admitted to observation status but has had a worsening of her hyponatremia and progression of pulmonary symptoms. She will be admitted to inpatient status as of this morning. DISPOSITION - anticipate discharge to home after the hospital stay. PRIMARY CARE PROVIDER - Dr. Johnna Quintanilla MD
[2019-01-23] MEDS: Doxycycline 100 MG Cap PO SCH ×2 (09:15→20:54)
[2019-01-23] MEDS: Enoxaparin 40 MG/0.4 ML Syringe SUBCUT SCH (09:16)
[2019-01-23] MEDS: Albuterol/Ipratropium 3.0-0.5 MG/3 ML Neb Soln NEB SCH ×3 (10:42→20:51)
[2019-01-23] MEDS: Insulin Lispro 100 Unit/ML 3 ML KwikPen SUBCUT SCH ×3 (12:25→20:50)
[2019-01-23] MEDS ORDERED: Insulin Lispro 100 Unit/ML 3 ML KwikPen SUBCUT ONE (17:16)
[2019-01-23] MEDS: Bisacodyl 5 MG Tab PO PRN (18:13)
[2019-01-23] MEDS: LORazepam 2 MG/ML SDV IV PRN (21:51)
[2019-01-24] MEDS: Ibuprofen 800 MG Tab PO PRN ×3 (00:51→18:03)
[2019-01-24] MEDS: oxyCODONE 5 MG Tab PO PRN ×4 (00:51→19:13)
[2019-01-24] MEDS: Albuterol/Ipratropium 3.0-0.5 MG/3 ML Neb Soln NEB SCH ×4 (07:05→20:10)
[2019-01-24] MEDS: Insulin Lispro 100 Unit/ML 3 ML KwikPen SUBCUT SCH ×4 (07:39→20:10)
[2019-01-24] MEDS: Levothyroxine 50 MCG Tab PO SCH (07:45)
[2019-01-24] MEDS: metFORMIN 500 MG Tab PO SCH ×2 (07:46→17:29)
[2019-01-24] MEDS: predniSONE 20 MG Tab PO SCH (07:47)
[2019-01-24] MEDS: hydrOXYzine HCl 25 MG Tab PO PRN (07:50)
[2019-01-24] MEDS: Propranolol 40 MG Tab PO SCH ×2 (08:00→20:11)
[2019-01-24] MEDS: Doxycycline 100 MG Cap PO SCH (08:00)
[2019-01-24] MEDS: atorvaSTATin 10 MG Tab PO SCH (08:00)
[2019-01-24] MEDS: Enoxaparin 40 MG/0.4 ML Syringe SUBCUT SCH (08:01)
[2019-01-24] MEDS: guaiFENesin 600 MG Tab.ER PO SCH ×2 (08:01→20:11)
[2019-01-24] MEDS: Cyclobenzaprine 10 MG Tab PO SCH ×3 (08:01→20:11)
[2019-01-24] MEDS: Nicotine 21 MG/24 Hr Patch TRDERM SCH (08:01)
[2019-01-24] MEDS: Liraglutide (rDNA Origin) 0.6 MG/0.1 ML 3 ML Pen SUBCUT SCH (08:02)
[2019-01-24] MEDS: DEMECLOCYCLINE 300 MG PO SCH ×2 (09:03→20:10)
--- NOTE | 2019-01-24 09:24 | PCM.PN ---
- General Info Date of Service: 01/24/19 Subjective Update: There were no acute events overnight. Shortness of breath and coughing are both little better today. Rib pain has decreased moderately since yesterday. She thinks her strength is a little better today and she is moving around in bed easier. No fevers. No abdominal pain or nausea. Sodium level remained low despite fluid challenges yesterday. Functional Status: Reports: Pain Controlled, Tolerating Diet - Review of Systems General: Denies: Fever Pulmonary: Reports: Cough Cardiovascular: Reports: Chest Pain - Patient Data Vitals - Most Recent: Last Vital Signs Temp 36.3 C 01/24/19 08:00 Pulse 67 01/24/19 08:00 Resp 16 01/24/19 08:00 BP 131/80 01/24/19 08:00 Pulse Ox 87 L 01/24/19 08:00 Weight - Most Recent: 68 kg Lab Results Last 24 Hours: Laboratory Results - last 24 hr 01/23/19 01/24/19 01/24/19 Range/Units 15:13 04:30 04:40 WBC 9.2 (4.5-11.0) K/uL RBC 3.81 (3.30-5.50) M/uL Hgb 11.8 L (12.0-15.0) g/dL Hct 32.6 L (36.0-48.0) % MCV 86 (80-98) fL MCH 31 (27-31) pg MCHC 36 (32-36) % Plt Count 325 (150-400) K/uL Sodium 115 L* 117 L* (140-148) mmol/L Potassium 3.7 (3.6-5.2) mmol/L Chloride 84 L (100-108) mmol/L Carbon Dioxide 26 (21-32) mmol/L Anion Gap 10.7 (5.0-14.0) mmol/L BUN 9 (7-18) mg/dL Creatinine 0.6 (0.6-1.0) mg/dL Est Cr Clr Drug Dosing 83.05 mL/min Estimated GFR (MDRD) > 60 (>60) Glucose 121 H (74-106) mg/dL Calcium 8.2 L (8.5-10.1) mg/dL Med Orders - Current: Current Medications Albuterol/Ipratropium (Duoneb 3.0-0.5 Mg/3 Ml) 3 ml NEB QIDRT [facility] Last Admin: 01/24/19 07:05 Dose: 3 ml Amitriptyline HCl (Elavil) 200 mg PO BEDTIME [facility] Last Admin: 01/23/19 20:52 Dose: 200 mg Atorvastatin Calcium (Lipitor) 10 mg PO DAILY [facility] Last Admin: 01/24/19 08:00 Dose: 10 mg Bisacodyl (Dulcolax) 5 mg PO DAILY PRN PRN Reason: Constipation Last Admin: 01/23/19 18:13 Dose: 5 mg Cyclobenzaprine HCl (Flexeril) 10 mg PO TID [facility] Last Admin: 01/24/19 08:01 Dose: 10 mg Demeclocycline HCl (Demeclocycline) 300 mg PO BID [facility] Last Admin: 01/24/19 09:03 Dose: 300 mg Doxycycline Hyclate (Vibramycin) 100 mg PO BID [facility] Last Admin: 01/24/19 08:00 Dose: 100 mg Enoxaparin Sodium (Lovenox) 40 mg SUBCUT DAILY [facility] Last Admin: 01/24/19 08:01 Dose: 40 mg Fentanyl (Sublimaze) 50 mcg IVPUSH Q6H PRN PRN Reason: Pain (severe 7-10) Last Admin: 01/23/19 16:24 Dose: 50 mcg Guaifenesin (Mucinex) 600 mg PO BID [facility] Last Admin: 01/24/19 08:01 Dose: 600 mg Hydroxyzine HCl (Atarax) 25 mg PO Q8H PRN PRN Reason: Itching Last Admin: 01/24/19 07:50 Dose: 25 mg Ibuprofen (Motrin) 800 mg PO Q8HR PRN PRN Reason: Pain (moderate 4-6) Last Admin: 01/24/19 00:51 Dose: 800 mg Insulin Human Lispro (Humalog) 0 unit SUBCUT QIDACANDBED [facility]; Protocol Last Admin: 01/24/19 07:39 Dose: Not Given Levothyroxine Sodium (Synthroid) 50 mcg PO ACBREAKFAST [facility] Last Admin: 01/24/19 07:45 Dose: 50 mcg Liraglutide (Victoza) 1.2 mg SUBCUT DAILY [facility] Last Admin: 01/24/19 08:02 Dose: 1.2 mg Lorazepam (Ativan) 1 mg IV Q6H PRN PRN Reason: Nausea/Vomiting Last Admin: 01/23/19 21:51 Dose: 1 mg Metformin HCl (Glucophage) 1,000 mg PO BIDMEALS [facility] Last Admin: 01/24/19 07:46 Dose: 1,000 mg Nicotine (Habitrol) 21 mg TRDERM DAILY [facility] Last Admin: 01/24/19 08:01 Dose: 21 mg Ondansetron HCl (Zofran) 4 mg IV Q4H PRN PRN Reason: Nausea/Vomiting Oxycodone HCl (Oxycodone) 10 mg PO Q6H PRN PRN Reason: Pain (moderate 4-6) Last Admin: 01/24/19 07:01 Dose: 10 mg Prednisone (Prednisone) 20 mg PO WITHBREAKFAST [facility] Last Admin: 01/24/19 07:47 Dose: 20 mg Propranolol HCl (Inderal) 40 mg PO BID [facility] Last Admin: 01/24/19 08:00 Dose: 40 mg Pyridostigmine [place] (Mestinon) 60 mg PO TID [facility] Last Admin: 01/24/19 08:02 Dose: 60 mg Sodium Chloride (Saline Flush) 10 ml FLUSH ASDIRECTED PRN PRN Reason: Keep Vein Open Discontinued Medications Albuterol/Ipratropium (Duoneb 3.0-0.5 Mg/3 Ml) 3 ml NEB ONETIME ONE Stop: 01/21/19 21:21 Last Admin: 01/21/19 21:42 Dose: 3 ml Sodium Chloride (Normal Saline) 1,000 mls @ 500 mls/hr IV ASDIRECTED [facility] Stop: 01/23/19 11:01 Last Admin: 01/23/19 09:25 Dose: 500 mls/hr Insulin Human Lispro (Humalog) 8 unit SUBCUT ONETIME ONE Stop: 01/23/19 17:17 Last Admin: 01/23/19 17:37 Dose: 8 units Lorazepam (Ativan) 1 mg IVPUSH ONETIME ONE Stop: 01/21/19 19:41 Last Admin: 01/21/19 19:59 Dose: 1 mg Prednisone (Prednisone) 20 mg PO ONETIME ONE Stop: 01/23/19 09:04 Last Admin: 01/23/19 09:15 Dose: 20 mg - Exam Quality Assessment: Supplemental Oxygen General: Alert, Oriented, Cooperative, No Acute Distress Lungs: Clear to Auscultation, Normal Respiratory Effort. No: Wheezing Cardiovascular: Regular Rate, Regular Rhythm GI/Abdominal Exam: Soft, No Distention Extremities: No Pedal Edema Psy/Mental Status: Alert, Normal Affect - Problem List Review Problem List Initiated/Reviewed/Updated: Yes - My Orders Last 24 Hours: My Active Orders 01/23/19 09:02 Blood Glucose Check, Bedside [RC] WITHMEALSANDBED Communication Order [RC] PRN Communication Order [RC] PRN Diabetes Education [RC] Click to Edit Notify Provider [RC] PRN 01/23/19 09:04 Admission Status [Patient Status] [ADT] Routine 01/23/19 09:15 Doxycycline [Vibramycin] 100 mg PO BID 01/23/19 11:00 Albuterol/Ipratropium [DuoNeb 3.0-0.5 MG/3 ML] 3 ml NEB QIDRT Insulin Lispro [HumaLOG] See Protocol SUBCUT QIDACANDBED 01/24/19 08:00 predniSONE 20 mg PO WITHBREAKFAST 01/24/19 09:00 Demeclocycline 300 mg PO BID 01/24/19 Dinner NPO After Midnight [Nothing per Oral After Midnight Diet] [DIET] 01/25/19 05:00 BASIC METABOLIC PANEL,BMP [CHEM] Timed 01/25/19 07:00 Abdomen w Cont [MR] Routine - Plan Plan:: ASSESSMENT AND PLAN Severe hyponatremia - most likely SIADH and I'm concerned is related to the suspected cancer in the right upper lobe. Level did not improve with fluid challenge. -trial of demeclocycline -Repeat labs in the morning Acute bronchitis, suspected - cough and shortness of breath have improved since antibiotics and steroids were initiated yesterday. -Demeclocycline -Prednisone 20 mg daily for 3 days Multiple left-sided rib fractures 5, 6 and 7 with minimal displacement - pain control improved significantly since yesterday. -Acetaminophen for mild pain and oxycodone for moderate pain -Fentanyl for severe pain Lung mass apex right lung - this is a 2.1 x 1.7 mm spiculated mass concerning for neoplasm, workup to be done in outpatient setting would include PET scan and possibly biopsy. -Outpatient follow-up Cystic mass detail the pancreas - unclear etiology, further workup will be completed during hospitalization. -MRI tomorrow morning Myasthenia gravis - stable for many years on home medications. -Continue home meds MAINTENANCE ISSUES -DVT prophylaxis; Lovenox 40 mg subcutaneous daily -GI prophylaxis; not indicated at this time -Killian catheter; not indicated at this time -Nutrition; regular diet -Nicotine dependence; NicoDerm patch DISPOSITION - anticipate discharge to home after the hospital stay. PRIMARY CARE PROVIDER - Dr. Johnna Quintanilla MD
[2019-01-24] MEDS: LORazepam 2 MG/ML SDV IV PRN (20:27)
[2019-01-24] MEDS: fentaNYL 100 MCG/2 ML SDV IVPUSH PRN (21:15)
[2019-01-25] MEDS: oxyCODONE 5 MG Tab PO PRN ×4 (00:55→21:32)
[2019-01-25] MEDS: fentaNYL 100 MCG/2 ML SDV IVPUSH PRN ×3 (04:49→19:12)
[2019-01-25] MEDS: Albuterol/Ipratropium 3.0-0.5 MG/3 ML Neb Soln NEB SCH ×4 (07:18→21:23)
[2019-01-25] MEDS: LORazepam 2 MG/ML SDV IV PRN ×3 (07:43→21:32)
[2019-01-25] MEDS ORDERED: Potassium Chloride 20 MEQ Tab.ER PO ONE ×2 (08:00→09:45)
[2019-01-25] MEDS ORDERED: Gadoteridol 279.3 MG/ML 20 ML SDV IV SCH (08:15)
[2019-01-25] MEDS: Insulin Lispro 100 Unit/ML 3 ML KwikPen SUBCUT SCH ×4 (09:00→21:31)
[2019-01-25] MEDS: Levothyroxine 50 MCG Tab PO SCH (09:02)
[2019-01-25] MEDS: metFORMIN 500 MG Tab PO SCH ×2 (09:02→16:59)
[2019-01-25] MEDS: predniSONE 20 MG Tab PO SCH (09:02)
[2019-01-25] MEDS: DEMECLOCYCLINE 300 MG PO SCH ×2 (09:03→21:29)
[2019-01-25] MEDS: Cyclobenzaprine 10 MG Tab PO SCH ×3 (09:03→21:29)
[2019-01-25] MEDS: guaiFENesin 600 MG Tab.ER PO SCH ×2 (09:04→21:29)
[2019-01-25] MEDS: Propranolol 40 MG Tab PO SCH ×2 (09:04→21:29)
[2019-01-25] MEDS: Enoxaparin 40 MG/0.4 ML Syringe SUBCUT SCH (09:04)
[2019-01-25] MEDS: Liraglutide (rDNA Origin) 0.6 MG/0.1 ML 3 ML Pen SUBCUT SCH (09:04)
[2019-01-25] MEDS: atorvaSTATin 10 MG Tab PO SCH (09:04)
[2019-01-25] MEDS: Nicotine 21 MG/24 Hr Patch TRDERM SCH (09:08)
--- NOTE | 2019-01-25 09:21 | PCM.PN ---
- General Info Date of Service: 01/25/19 Subjective Update: Sharda evening the patient had difficulty with increased pain and also at that time had significant hypertension with systolic blood pressures in the 190s. After a dose of IV pain medication her pain did slowly trended down overnight. She has been waking up in the middle the night with a fair amount of pain. Pain has been fairly well-controlled during the course of the day. Cough is better. Shortness of breath is better. No fevers. We did complete an MRI of the abdomen today which unfortunately was suggestive of pancreatic cancer and also a probable metastatic spread in the liver. Patient is discussing with her family where she would like to be receiving her cancer care at this time. Functional Status: Reports: Pain Controlled, Tolerating Diet - Review of Systems General: Denies: Fever Cardiovascular: Reports: Chest Pain - Patient Data Vitals - Most Recent: Last Vital Signs Temp 35.5 C 01/25/19 04:00 Pulse 68 01/25/19 07:19 Resp 16 01/25/19 04:00 BP 112/69 01/25/19 04:00 Pulse Ox 94 L 01/25/19 04:00 Weight - Most Recent: 68 kg I&O - Last 24 Hours: Intake & Output 01/24/19 01/25/19 01/25/19 22:59 06:59 14:59 Intake Total 236 Balance 236 Lab Results Last 24 Hours: Laboratory Results - last 24 hr 01/25/19 Range/Units 04:40 Sodium 120 L (140-148) mmol/L Potassium 3.5 L (3.6-5.2) mmol/L Chloride 84 L (100-108) mmol/L Carbon Dioxide 28 (21-32) mmol/L Anion Gap 11.5 (5.0-14.0) mmol/L BUN 11 (7-18) mg/dL Creatinine 0.6 (0.6-1.0) mg/dL Est Cr Clr Drug Dosing 83.05 mL/min Estimated GFR (MDRD) > 60 (>60) Glucose 81 (74-106) mg/dL Calcium 8.7 (8.5-10.1) mg/dL Med Orders - Current: Current Medications Albuterol/Ipratropium (Duoneb 3.0-0.5 Mg/3 Ml) 3 ml NEB QIDRT [facility] Last Admin: 01/25/19 07:18 Dose: 3 ml Amitriptyline HCl (Elavil) 200 mg PO BEDTIME [facility] Last Admin: 01/24/19 20:10 Dose: 200 mg Atorvastatin Calcium (Lipitor) 10 mg PO DAILY [facility] Last Admin: 01/25/19 09:04 Dose: 10 mg Bisacodyl (Dulcolax) 5 mg PO DAILY PRN PRN Reason: Constipation Last Admin: 01/23/19 18:13 Dose: 5 mg Cyclobenzaprine HCl (Flexeril) 10 mg PO TID [facility] Last Admin: 01/25/19 09:03 Dose: 10 mg Demeclocycline HCl (Demeclocycline) 300 mg PO BID [facility] Last Admin: 01/25/19 09:03 Dose: 300 mg Enoxaparin Sodium (Lovenox) 40 mg SUBCUT DAILY [facility] Last Admin: 01/25/19 09:04 Dose: 40 mg Fentanyl (Sublimaze) 50 mcg IVPUSH Q6H PRN PRN Reason: Pain (severe 7-10) Last Admin: 01/25/19 04:49 Dose: 50 mcg Fentanyl (Duragesic) 12 mcg TRDERM Q72H [facility] Gadoteridol (Prohance) 20 ml IV . DIRECTED [facility] Stop: 01/25/19 12:00 Guaifenesin (Mucinex) 600 mg PO BID [facility] Last Admin: 01/25/19 09:04 Dose: 600 mg Hydroxyzine HCl (Atarax) 25 mg PO Q8H PRN PRN Reason: Itching Last Admin: 01/24/19 07:50 Dose: 25 mg Ibuprofen (Motrin) 800 mg PO Q8HR PRN PRN Reason: Pain (moderate 4-6) Last Admin: 01/24/19 18:03 Dose: 800 mg Insulin Human Lispro (Humalog) 0 unit SUBCUT QIDACANDBED [facility]; Protocol Last Admin: 01/25/19 09:00 Dose: Not Given Levothyroxine Sodium (Synthroid) 50 mcg PO ACBREAKFAST [facility] Last Admin: 01/25/19 09:02 Dose: 50 mcg Liraglutide (Victoza) 1.2 mg SUBCUT DAILY [facility] Last Admin: 01/25/19 09:04 Dose: 1.2 mg Lorazepam (Ativan) 1 mg IV Q6H PRN PRN Reason: Nausea/Vomiting Last Admin: 01/25/19 07:43 Dose: 1 mg Metformin HCl (Glucophage) 1,000 mg PO BIDMEALS [facility] Last Admin: 01/25/19 09:02 Dose: 1,000 mg Nicotine (Habitrol) 21 mg TRDERM DAILY [facility] Last Admin: 01/25/19 09:08 Dose: 21 mg Ondansetron HCl (Zofran) 4 mg IV Q4H PRN PRN Reason: Nausea/Vomiting Oxycodone HCl (Oxycodone) 10 mg PO Q6H PRN PRN Reason: Pain (moderate 4-6) Last Admin: 01/25/19 08:56 Dose: 10 mg Potassium Chloride (Klor-Con M20) 40 meq PO ONETIME ONE Stop: 01/25/19 09:20 Prednisone (Prednisone) 20 mg PO WITHBREAKFAST [facility] Last Admin: 01/25/19 09:02 Dose: 20 mg Propranolol HCl (Inderal) 40 mg PO BID [facility] Last Admin: 01/25/19 09:04 Dose: 40 mg Pyridostigmine [place] (Mestinon) 60 mg PO TID [facility] Last Admin: 01/25/19 09:03 Dose: 60 mg Sodium Chloride (Saline Flush) 10 ml FLUSH ASDIRECTED PRN PRN Reason: Keep Vein Open Last Admin: 01/25/19 04:52 Dose: 10 ml Discontinued Medications Albuterol/Ipratropium (Duoneb 3.0-0.5 Mg/3 Ml) 3 ml NEB ONETIME ONE Stop: 01/21/19 21:21 Last Admin: 01/21/19 21:42 Dose: 3 ml Doxycycline Hyclate (Vibramycin) 100 mg PO BID [facility] Last Admin: 01/24/19 08:00 Dose: 100 mg Sodium Chloride (Normal Saline) 1,000 mls @ 500 mls/hr IV ASDIRECTED [facility] Stop: 01/23/19 11:01 Last Admin: 01/23/19 09:25 Dose: 500 mls/hr Insulin Human Lispro (Humalog) 8 unit SUBCUT ONETIME ONE Stop: 01/23/19 17:17 Last Admin: 01/23/19 17:37 Dose: 8 units Lorazepam (Ativan) 1 mg IVPUSH ONETIME ONE Stop: 01/21/19 19:41 Last Admin: 01/21/19 19:59 Dose: 1 mg Potassium Chloride (Klor-Con M20) 40 meq PO ONETIME ONE Stop: 01/25/19 08:01 Last Admin: 01/25/19 09:02 Dose: 40 meq Prednisone (Prednisone) 20 mg PO ONETIME ONE Stop: 01/23/19 09:04 Last Admin: 01/23/19 09:15 Dose: 20 mg - Exam Quality Assessment: No: Supplemental Oxygen General: Alert, Oriented, Cooperative, No Acute Distress HEENT: Other (right eye ptosis ) Lungs: Clear to Auscultation, Normal Respiratory Effort. No: Crackles, Wheezing Cardiovascular: Regular Rate, Regular Rhythm GI/Abdominal Exam: Soft, No Distention Extremities: No Pedal Edema Psy/Mental Status: Alert, Normal Affect - Problem List Review Problem List Initiated/Reviewed/Updated: Yes - My Orders Last 24 Hours: My Active Orders 01/24/19 09:00 Demeclocycline 300 mg PO BID 01/25/19 07:00 Abdomen w wo Cont [MR] Routine 01/25/19 08:15 Gadoteridol [ProHance] 20 ml IV . DIRECTED 01/25/19 09:19 Potassium Chloride [Klor-Con M20] 40 meq PO ONETIME ONE 01/25/19 09:30 fentaNYL [Duragesic] 12 mcg TRDERM Q72H 01/26/19 05:00 BASIC METABOLIC PANEL,BMP [CHEM] Timed CBC W/O DIFF,HEMOGRAM [HEME] Timed (1) - Plan Plan:: ASSESSMENT AND PLAN Severe hyponatremia - most likely SIADH and I'm concerned is related to the suspected cancer with potential sources including both the right upper lobe mass as well as probable pancreatic cancer. Sodium is a little better today. -trial of demeclocycline -Repeat labs in the morning Acute bronchitis, suspected - cough and shortness of breath have improved since antibiotics and steroids were initiated. -Demeclocycline -Prednisone 20 mg daily for 3 days Multiple left-sided rib fractures 5, 6 and 7 with minimal displacement - pain control improved significantly as long as she is taking medications steadily but pain does get worse when she falls asleep overnight. -Start fentanyl patch -Acetaminophen for mild pain and oxycodone for moderate pain -IV Fentanyl for severe pain Lung mass apex right lung - this is a 2.1 x 1.7 mm spiculated mass concerning for neoplasm, workup to be done in outpatient setting would include PET scan and possibly biopsy. -Outpatient follow-up Probable pancreatic cancer - MRI suggestive of a pancreatic neoplasm. Many lesions in the liver concerning for metastatic spread. -Outpatient oncology follow-up as soon as possible after the hospital stay Myasthenia gravis - stable for many years on home medications. -Continue home meds MAINTENANCE ISSUES -DVT prophylaxis; Lovenox 40 mg subcutaneous daily -GI prophylaxis; not indicated at this time -Killian catheter; not indicated at this time -Nutrition; regular diet -Nicotine dependence; NicoDerm patch DISPOSITION - anticipate discharge to home after the hospital stay. PRIMARY CARE PROVIDER - Dr. Johnna Quintanilla MD
[2019-01-25] MEDS ORDERED: fentaNYL 12 MCG/HR Transdermal Patch TRDERM SCH (09:30)
--- NOTE | 2019-01-25 09:50 | CRLMR ---
Indication: Evaluate pancreas mass. Technique: MRI of the abdomen without and with IV gadolinium contrast. Comparison: CT chest 01/21/2019. Findings: No hepatic steatosis. There are innumerable small mildly T2 hyperintense, hypoenhancing, and diffusion restricting lesions throughout the liver. These are worrisome for metastases. As seen on the CT, there is a 1.5 x 1.8 cm T2 hyperintense hypoenhancing lesion arising from the pancreatic tail (series 7, image 12 and series 26, image 34). This most likely represents a side branch intraductal papillary mucinous neoplasm, however no definite connection to the main pancreatic duct is identified on the provided series. No dilation of the main pancreatic duct. The pancreatic parenchyma is otherwise normal in appearance and uniformly enhancing. Tiny bilateral renal cysts. No hydronephrosis. The gallbladder, spleen, and adrenal glands are negative. No free fluid or lymphadenopathy. Tiny left pleural effusion. Impression: 1. Innumerable lesions throughout the liver worrisome for metastases. 2. 1.8 cm cystic lesion in the pancreatic tail most likely represents a side-branch intraductal papillary mucinous neoplasm. Other differential consideration includes cystic pancreatic neoplasm such as serous or mucinous cystadenoma. 3. Tiny left pleural effusion. Dictated by Ladan Yusuf MD @ Jan 25 2019 9:29AM Signed by Dr. Ladan Yusuf @ Jan 25 2019 9:49AM
[2019-01-25] MEDS: Ibuprofen 800 MG Tab PO PRN ×2 (12:13→20:46)
[2019-01-25] MEDS: VERIFY FENT PATCH TOP SCH (22:24)
[2019-01-26] MEDS: Ibuprofen 800 MG Tab PO PRN (05:05)
[2019-01-26] MEDS: oxyCODONE 5 MG Tab PO PRN ×2 (05:06→11:07)
[2019-01-26] MEDS: Albuterol/Ipratropium 3.0-0.5 MG/3 ML Neb Soln NEB SCH ×3 (06:57→14:26)
[2019-01-26] MEDS: Insulin Lispro 100 Unit/ML 3 ML KwikPen SUBCUT SCH ×2 (07:58→11:47)
[2019-01-26] MEDS: metFORMIN 500 MG Tab PO SCH (07:59)
[2019-01-26] MEDS: Levothyroxine 50 MCG Tab PO SCH (07:59)
[2019-01-26] MEDS: predniSONE 20 MG Tab PO SCH (07:59)
[2019-01-26] MEDS: DEMECLOCYCLINE 300 MG PO SCH (07:59)
[2019-01-26] MEDS: Enoxaparin 40 MG/0.4 ML Syringe SUBCUT SCH (08:00)
[2019-01-26] MEDS: Cyclobenzaprine 10 MG Tab PO SCH ×2 (08:00→14:10)
[2019-01-26] MEDS: Propranolol 40 MG Tab PO SCH (08:00)
[2019-01-26] MEDS: Liraglutide (rDNA Origin) 0.6 MG/0.1 ML 3 ML Pen SUBCUT SCH (08:01)
[2019-01-26] MEDS: atorvaSTATin 10 MG Tab PO SCH (08:01)
[2019-01-26] MEDS: guaiFENesin 600 MG Tab.ER PO SCH (08:01)
[2019-01-26] MEDS: VERIFY FENT PATCH TOP SCH (08:01)
[2019-01-26] MEDS: Nicotine 21 MG/24 Hr Patch TRDERM SCH (08:02)
--- NOTE | 2019-01-26 13:16 | PCM.DCSUM1 ---
Discharge Summary - Hospital Course Brief History: 58-year-old female with history of tobacco dependence, myasthenia gravis, [id number] diabetes mellitus who presented with severe left chest pain. CT scan of the chest in the emergency room revealed 3 left-sided rib fractures as well as a mass in the right upper lobe and a pancreatic mass. She was admitted from pain control with multiple rib fractures. Diagnosis: Stroke: No - Discharge Data Discharge Date: 01/26/19 Discharge Disposition: Home, Self-Care 01 Condition: Fair - Discharge Diagnosis/Problem(s) (1) Ribs, multiple fractures SNOMED Code(s): 6343782 ICD Code: S22.49XA - MULTIPLE FRACTURES OF RIBS, UNSP SIDE, INIT FOR CLOS FX Status: Acute Priority: High Current Visit: Yes Qualifiers: Encounter type: initial encounter Fracture type: closed Laterality: left Qualified Code(s): S22.42XA - Multiple fractures of ribs, left side, initial encounter for closed fracture (2) Acute bronchitis SNOMED Code(s): 32502717 ICD Code: J20.9 - ACUTE BRONCHITIS, UNSPECIFIED Status: Acute Current Visit: Yes Qualifiers: Bronchitis organism: unspecified organism Qualified Code(s): J20.9 - Acute bronchitis, unspecified (3) Mass of right lung SNOMED Code(s): 947774120 ICD Code: R91.8 - OTHER NONSPECIFIC ABNORMAL FINDING OF LUNG FIELD Status: Acute Priority: Medium Current Visit: Yes (4) Cystic mass of pancreas SNOMED Code(s): 61038792 ICD Code: K86.2 - CYST OF PANCREAS Status: Acute Priority: Medium Current Visit: Yes Problem Details: probable cystic pancreatic cancer (5) Tobacco dependence SNOMED Code(s): 84848833 ICD Code: F17.200 - NICOTINE DEPENDENCE, UNSPECIFIED, UNCOMPLICATED Status : Chronic Current Visit: No (6) Type 2 diabetes mellitus SNOMED Code(s): 81118783 ICD Code: E11.9 - TYPE 2 DIABETES MELLITUS WITHOUT COMPLICATIONS Status: Chronic Current Visit: No Qualifiers: Diabetes mellitus senior living insulin use: without buttermaker use Diabetes mellitus complication status: without complication Qualified Code(s): E11.9 - Type 2 diabetes mellitus without complications (7) Hyponatremia with normal extracellular fluid volume SNOMED Code(s): 00998825 ICD Code: E87.1 - HYPO-OSMOLALITY AND HYPONATREMIA Status: Acute Current Visit: Yes - Patient Summary/Data Consults: Consultations 01/22/19 09:29 PT Evaluation and Treatment [CONS] Routine Please Evaluate and Treat. PT Reason for Consult: Strengthening Special Instructions: left rib fractures This query below is only for informational purposes and is not editable. Admission Diagnosis/Problem: Pain aggravated by breathing Hospital Course: Ita presented to the emergency room with severe left-sided chest pain. She had been seen earlier in the day in the clinic and diagnosed with a fracture of the fifth rib on the left side. She initially went home with pain medications hoping to be managed as an outpatient. Unfortunately her pain worsened and she needed further evaluation. Given the severity of her pain on arrival a CT scan of the chest was performed. This showed fractures of ribs 5 through 7 with minimal displacement. The patient did not report a history of trauma but did hear a crack while she was twisting earlier in the day about the time the pain became very severe. Also noted on the CT scan was a spiculated mass in the right upper lobe and a cystic mass in the tail of the pancreas. Both were concerning for malignancy. Laboratory studies revealed hyponatremia with a sodium level of 120. The patient was admitted to the hospital for pain control. She received as needed oxycodone and as needed fentanyl for severe pain overnight. She received IV fluids overnight. The morning after admission she is reporting ongoing severe pain in the left side of her chest, however pain is a little better than at the time of admission. Her vital signs have all been stable. Throughout the next 24 hours her condition remained stable. She did report increasing cough as well as some sputum production. I became suspicious for bronchitis at this point and did start her on doxycycline. She also became hypoxic and did develop wheezing. She was started on 20 mg of prednisone daily to help with both the bronchitis and rib pain. This medication did seem to help calm her pain down a fair amount over the next couple of days. Her sodium level decreased slightly and then remained relatively stable between 115 and 120. She has been euvolemic and did not respond to fluid challenges. I suspect the low sodium is related to SIADH from her probable cancer/cancers. We did perform an MRI of the abdomen to further investigate the pancreatic mass. 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 This was 1.8 cm in diameter. Also noted were innumerable small lesions in the liver concerning for metastatic disease. We do not have the capability for biopsy of the intra-abdominal lesions here. We do not have PET/ CT available here so no further workup for these lesions was undertaken. I have a strong concern that she has a primary pancreatic cancer with spread to the liver. She may have either metastatic disease to the lung or probably more likely a primary lung cancer as well with a 2 cm spiculated mass noted in the right upper lobe. Regarding the rib fractures, her pain control has been improving. We did start her on a fentanyl patch and have continued to utilize as needed oxycodone. She is feeling much better with the antibiotics and steroids were used to treat her bronchitis. She has completed a three-day burst of steroids and these will be discontinued so we don't further exacerbate her diabetes which is normally well controlled. Her sodium level has remained stable but is low. 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 She is moving well and feels comfortable going home at this time. She is not requiring supplemental oxygen. Pain is fairly well-controlled with the patch and pill combination. She would benefit from early follow-up next week to recheck her sodium. She was interested in a referral to the [facility] for oncology care. She will be going down there in approximately 2 weeks for consultation and biopsy before seeing the oncology team once a formal tissue diagnosis of cancer has been made. - Patient Instructions Diet: Diabetic Diet Activity: As Tolerated Showering/Bathing: May Shower Notify Provider of: Fever, Increased Pain, Nausea and/or Vomiting Other/Special Instructions: 1. You were in the hospital for management of pain related to multiple rib fractures on the left side. Pain control measures include as needed acetaminophen, as needed ibuprofen, oxycodone 10 mg every 6 hours as needed as well as a fentanyl patch which will be changed every 72 hours. You may increase your activity as tolerated. You should not drive while you are taking narcotic pain medications. 2. Your sodium level was noted to be low during the hospital stay. I suspect this is related to SIADH (syndrome of inappropriate antidiuretic hormone) caused by your cancer. I have started to meclocycline to help slowly raise this level. You should have your level rechecked during your follow-up in the next 1-2 weeks. 3. During the hospital stay we discovered a right upper lobe mass concerning for cancer as well as a mass in your pancreas that is also concerning for cancer. There are abnormalities in your liver on the MRI that are concerning for metastatic cancer. I will be sending information to the [facility] for a referral to receive cancer treatment. They should be contacting you in the near future with an appointment and further information. 4. Follow up with your primary care in the next 1-2 weeks. You should have your sodium level rechecked at that time. - Discharge Plan *PRESCRIPTION DRUG MONITORING PROGRAM REVIEWED*: Not Applicable *COPY OF PRESCRIPTION DRUG MONITORING REPORT IN PATIENT RENALDO: Not Applicable Prescriptions/Med Rec: Demeclocycline 300 mg PO BID #60 tablet fentaNYL [Duragesic] 12 mcg TRDERM Q72H #10 patch oxyCODONE 10 mg PO Q6HR PRN #60 tablet PRN Reason: Pain (Moderate 4-6) Home Medications: Home Meds Amitriptyline HCl 200 mg PO BEDTIME 01/21/19 [History] Cyclobenzaprine [Flexeril] 10 mg PO TID 01/21/19 [History] Ibuprofen 800 mg PO Q8HR PRN 01/21/19 [History] Levothyroxine Sodium [Levoxyl] 50 mcg PO DAILY 01/21/19 [History] Liraglutide [Victoza] 1.2 mg SQ DAILY 01/21/19 [History] Propranolol HCl 40 mg PO BID 01/21/19 [History] Pyridostigmine [Mestinon] 60 mg PO TID 01/21/19 [History] atorvaSTATin Calcium [Atorvastatin Calcium] 10 mg PO DAILY 01/21/19 [History] hydrOXYzine HCl [hydrOXYzine] 25 mg PO Q8H PRN 01/21/19 [History] metFORMIN HCl [Metformin HCl] 1,000 mg PO BID 01/21/19 [History] Demeclocycline 300 mg PO BID #60 tablet 01/26/19 [Rx] fentaNYL [Duragesic] 12 mcg TRDERM Q72H #10 patch 01/26/19 [Rx] oxyCODONE 10 mg PO Q6HR PRN #60 tablet 01/26/19 [Rx] Oxygen Therapy Mode: Room Air Patient Handouts: Fentanyl skin patch, Rib Fracture, [id number] Referrals: Cesar Iglesias MD [Primary Care Provider] - 02/02/19 10:30 am (f/u in 1-2 weeks - f/u hospital stay for rib fractures, lung mass, pancreatic mass, low sodium. Recheck sodium on day of visit. ) - Discharge Summary/Plan Comment DC Time >30 min.: Yes (60 - referral to [facility] for oncology care) - Patient Data Vitals - Most Recent: Last Vital Signs Temp 35.4 C 01/26/19 10:40 Pulse 63 01/26/19 10:40 Resp 18 01/26/19 10:40 BP 122/74 01/26/19 10:40 Pulse Ox 90 L 01/26/19 10:40 Weight - Most Recent: 68 kg I&O - Last 24 hours: Intake & Output 01/25/19 01/26/19 01/26/19 22:59 06:59 14:59 Intake Total 900 590 Balance 900 590 Lab Results - Last 24 hrs: Laboratory Results - last 24 hr 01/26/19 01/26/19 Range/Units 05:00 05:00 WBC 12.2 H (4.5-11.0) K/uL RBC 4.00 (3.30-5.50) M/uL Hgb 12.2 (12.0-15.0) g/dL Hct 34.1 L (36.0-48.0) % MCV 85 (80-98) fL MCH 31 (27-31) pg MCHC 36 (32-36) % Plt Count 343 (150-400) K/uL Sodium 119 L* (140-148) mmol/L Potassium 3.8 (3.6-5.2) mmol/L Chloride 84 L (100-108) mmol/L Carbon Dioxide 25 (21-32) mmol/L Anion Gap 13.8 (5.0-14.0) mmol/L BUN 11 (7-18) mg/dL Creatinine 0.5 L (0.6-1.0) mg/dL Est Cr Clr Drug Dosing 99.66 mL/min Estimated GFR (MDRD) > 60 (>60) Glucose 99 (74-106) mg/dL Calcium 8.6 (8.5-10.1) mg/dL Med Orders - Current: Current Medications Albuterol/Ipratropium (Duoneb 3.0-0.5 Mg/3 Ml) 3 ml NEB QIDRT [facility] Last Admin: 01/26/19 11:02 Dose: 3 ml Amitriptyline HCl (Elavil) 200 mg PO BEDTIME [facility] Last Admin: 01/25/19 21:29 Dose: 200 mg Atorvastatin Calcium (Lipitor) 10 mg PO DAILY [facility] Last Admin: 01/26/19 08:01 Dose: 10 mg Bisacodyl (Dulcolax) 5 mg PO DAILY PRN PRN Reason: Constipation Last Admin: 01/23/19 18:13 Dose: 5 mg Cyclobenzaprine HCl (Flexeril) 10 mg PO TID [facility] Last Admin: 01/26/19 08:00 Dose: 10 mg Demeclocycline HCl (Demeclocycline) 300 mg PO BID [facility] Last Admin: 01/26/19 07:59 Dose: 300 mg Enoxaparin Sodium (Lovenox) 40 mg SUBCUT DAILY [facility] Last Admin: 01/26/19 08:00 Dose: 40 mg Fentanyl (Sublimaze) 50 mcg IVPUSH Q6H PRN PRN Reason: Pain (severe 7-10) Last Admin: 01/25/19 19:12 Dose: 50 mcg Fentanyl (Duragesic) 12 mcg TRDERM Q72H [facility] Last Admin: 01/25/19 10:20 Dose: 12 mcg Guaifenesin (Mucinex) 600 mg PO BID [facility] Last Admin: 01/26/19 08:01 Dose: 600 mg Hydroxyzine HCl (Atarax) 25 mg PO Q8H PRN PRN Reason: Itching Last Admin: 01/24/19 07:50 Dose: 25 mg Ibuprofen (Motrin) 800 mg PO Q8HR PRN PRN Reason: Pain (moderate 4-6) Last Admin: 01/26/19 05:05 Dose: 800 mg Insulin Human Lispro (Humalog) 0 unit SUBCUT QIDACANDBED [facility]; Protocol Last Admin: 01/26/19 11:47 Dose: 2 units Levothyroxine Sodium (Synthroid) 50 mcg PO ACBREAKFAST [facility] Last Admin: 01/26/19 07:59 Dose: 50 mcg Liraglutide (Victoza) 1.2 mg SUBCUT DAILY [facility] Last Admin: 01/26/19 08:01 Dose: 1.2 mg Lorazepam (Ativan) 1 mg IV Q6H PRN PRN Reason: Nausea/Vomiting Last Admin: 01/25/19 21:32 Dose: 1 mg Metformin HCl (Glucophage) 1,000 mg PO BIDMEALS [facility] Last Admin: 01/26/19 07:59 Dose: 1,000 mg Nicotine (Habitrol) 21 mg TRDERM DAILY [facility] Last Admin: 01/26/19 08:02 Dose: 21 mg Verify Fent Patch 0 each TOP BID [facility] Last Admin: 01/26/19 08:01 Dose: Not Given Ondansetron HCl (Zofran) 4 mg IV Q4H PRN PRN Reason: Nausea/Vomiting Oxycodone HCl (Oxycodone) 10 mg PO Q6H PRN PRN Reason: Pain (moderate 4-6) Last Admin: 01/26/19 11:07 Dose: 10 mg Prednisone (Prednisone) 20 mg PO WITHBREAKFAST [facility] Last Admin: 01/26/19 07:59 Dose: 20 mg Propranolol HCl (Inderal) 40 mg PO BID [facility] Last Admin: 01/26/19 08:00 Dose: 40 mg Pyridostigmine [place] (Mestinon) 60 mg PO TID [facility] Last Admin: 01/26/19 08:01 Dose: 60 mg Sodium Chloride (Saline Flush) 10 ml FLUSH ASDIRECTED PRN PRN Reason: Keep Vein Open Last Admin: 01/25/19 04:52 Dose: 10 ml Discontinued Medications Albuterol/Ipratropium (Duoneb 3.0-0.5 Mg/3 Ml) 3 ml NEB ONETIME ONE Stop: 01/21/19 21:21 Last Admin: 01/21/19 21:42 Dose: 3 ml Doxycycline Hyclate (Vibramycin) 100 mg PO BID [facility] Last Admin: 01/24/19 08:00 Dose: 100 mg Gadoteridol (Prohance) 20 ml IV . DIRECTED [facility] Stop: 01/25/19 12:00 Sodium Chloride (Normal Saline) 1,000 mls @ 500 mls/hr IV ASDIRECTED [facility] Stop: 01/23/19 11:01 Last Admin: 01/23/19 09:25 Dose: 500 mls/hr Insulin Human Lispro (Humalog) 8 unit SUBCUT ONETIME ONE Stop: 01/23/19 17:17 Last Admin: 01/23/19 17:37 Dose: 8 units Lorazepam (Ativan) 1 mg IVPUSH ONETIME ONE Stop: 01/21/19 19:41 Last Admin: 01/21/19 19:59 Dose: 1 mg Potassium Chloride (Klor-Con M20) 40 meq PO ONETIME ONE Stop: 01/25/19 08:01 Last Admin: 01/25/19 09:02 Dose: 40 meq Potassium Chloride (Klor-Con M20) 40 meq PO ONETIME ONE Stop: 01/25/19 09:46 Last Admin: 01/25/19 10:20 Dose: 40 meq Prednisone (Prednisone) 20 mg PO ONETIME ONE Stop: 01/23/19 09:04 Last Admin: 01/23/19 09:15 Dose: 20 mg - Exam Quality Assessment: Denies: Supplemental Oxygen General: Reports: Alert, Oriented, Cooperative, No Acute Distress HEENT: Reports: Other (ptosis right eye) Lungs: Reports: Clear to Auscultation, Normal Respiratory Effort Cardiovascular: Reports: Regular Rate, Regular Rhythm GI/Abdominal Exam: Soft, No Distention Extremities: No Pedal Edema Psy/Mental Status: Reports: Alert, Normal Affect
== END 2019-01-26 15:20 | disposition home or self-care (01) | DRG 184 ==
LOC: JP.ED 18:58 → JP.ICU 22:25 → OBSVTOIN 01-23 09:04 → JP.MS 01-25 17:20
PROVIDERS: ADMIT Family Medicine; ATTEND Internal Medicine
DX: S22.42XA Multiple fractures of ribs, left side, initial encounter for closed fracture (principal); F11.20 Opioid dependence, uncomplicated; E87.1 Hypo-osmolality and hyponatremia; X58.XXXA Exposure to other specified factors, initial encounter; R91.8 Other nonspecific abnormal finding of lung field; K86.9 Disease of pancreas, unspecified; J20.9 Acute bronchitis, unspecified; G70.00 Myasthenia gravis without (acute) exacerbation; G89.4 Chronic pain syndrome; M25.572 Pain in left ankle and joints of left foot; M25.571 Pain in right ankle and joints of right foot; E03.9 Hypothyroidism, unspecified; J43.9 Emphysema, unspecified; H54.7 Unspecified visual loss; H91.90 Unspecified hearing loss, unspecified ear; E78.00 Pure hypercholesterolemia, unspecified; M19.90 Unspecified osteoarthritis, unspecified site; E11.9 Type 2 diabetes mellitus without complications; Z88.5 Allergy status to narcotic agent; Z88.2 Allergy status to sulfonamides; Z79.84 Long term (current) use of oral hypoglycemic drugs; Z79.890 Hormone replacement therapy; Z79.891 Long term (current) use of opiate analgesic; Z79.899 Other long term (current) drug therapy
CPT/HCPCS: 36415; 71250; 74183; 80048; 80053; 82962; 84295; 85025; 85027; 94640; 94667; 94668; 96372; 96374; 96375; 96376; 97116-GP; 97163-GP; 97530-GP; 97535-GP; 99284-25; A9270-GY; A9576; G0378; J1650; J1815; J2060; J3010; J7030; J7620-GY

== ENCOUNTER 2019-01-31 20:18 | Emergency (ER) | payer MEDICAID ==
[2019-01-31] MEDS ORDERED: Sodium Chloride 0.9% 10 ML Syringe FLUSH PRN (20:50)
[2019-01-31] MEDS ORDERED: Sodium Chloride 0.9% 80 ML IV SCH (21:15)
[2019-01-31] MEDS ORDERED: Iopamidol 612 MG/ML 100 ML Bottle IV SCH (21:15)
--- NOTE | 2019-01-31 21:59 | EDM.PDOC ---
ED HPI GENERAL MEDICAL PROBLEM - General Chief Complaint: Neurological Problem Stated Complaint: CONFUSED AND HIGHER BLOOD SUGAR Time Seen by Provider: 01/31/19 20:50 Source of Information: Reports: Patient, Family History Limitations: Reports: Altered Mental Status, Other (confusion ) - History of Present Illness INITIAL COMMENTS - FREE TEXT/NARRATIVE: 58 year old female presents with son and daughter due to labile behavior and confusion over the last 2-3 days. Patient was recently hospitalized and discharged on January 25. Patient was diagnosed with rib fractures, difficulty with pain management, pancreatic, liver and lung masses of unclear source or multiple primary sources. Patient as referred to [facility] for further discussion regarding cancer diagnosis. Patient was discharged home with . Patient lives with and her mother in law. Son and Daughter were aware of hospitalization but became concerned today regarding her behavior, confusion and inability to care for her self. Patient's blood sugar were elevated due to prednisone in the 400s. Patient was unable to test her own blood sugar this afternoon and wondering aimlessly around the house. Children did not know how to proceed due to confusion and brought her to ER for evaluation. Left Upper Abdomen Pain Score (Numeric/FACES): 8 - Related Data Allergies Allergy/AdvReac Type Severity Reaction Status Date / Time meperidine [From Demerol] Allergy Hives Verified 01/21/19 19:16 prochlorperazine Allergy Cannot Verified 01/21/19 19:16 [From Compazine] Remember Sulfa (Sulfonamide Allergy Hives Verified 01/21/19 19:16 Antibiotics) Home Meds: Home Meds Amitriptyline HCl 200 mg PO BEDTIME 01/21/19 [History] Cyclobenzaprine [Flexeril] 10 mg PO TID 01/21/19 [History] Ibuprofen 800 mg PO Q8HR PRN 01/21/19 [History] Levothyroxine Sodium [Levoxyl] 50 mcg PO DAILY 01/21/19 [History] Liraglutide [Victoza] 1.2 mg SQ DAILY 01/21/19 [History] Propranolol HCl 40 mg PO BID 01/21/19 [History] Pyridostigmine [Mestinon] 60 mg PO TID 01/21/19 [History] atorvaSTATin Calcium [Atorvastatin Calcium] 10 mg PO DAILY 01/21/19 [History] hydrOXYzine HCl [hydrOXYzine] 25 mg PO Q8H PRN 01/21/19 [History] metFORMIN HCl [Metformin HCl] 1,000 mg PO BID 01/21/19 [History] Demeclocycline 300 mg PO BID #60 tablet 01/26/19 [Rx] fentaNYL [Duragesic] 12 mcg TRDERM Q72H #10 patch 01/26/19 [Rx] oxyCODONE 10 mg PO Q6HR PRN #60 tablet 01/26/19 [Rx] LORazepam [Ativan] 1 mg PO Q4H PRN 10 Days #20 tablet 01/31/19 [Rx] Past Medical History HEENT History: Reports: Hard of Hearing, Impaired Vision Cardiovascular History: Reports: High Cholesterol 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: Musculoskeletal History: Reports: Osteoarthritis, Other (See Below) Other Musculoskeletal History: TMJ Neurological History: Reports: Migraines, Other (See Below) Other Neuro History: Myasthenia gravis Psychiatric History: Reports: Addiction, Other (See Below) Other Psychiatric History: tobacco abuse Endocrine/Metabolic History: Reports: Diabetes, Type II, Hypothyroidism Oncologic (Cancer) History: Reports: Liver, Lung, Pancreatic, Other (See Below) Other Oncologic History: Kidney - Infectious Disease History Infectious Disease History: Reports: Chicken Pox - Past Surgical History HEENT Surgical History: Reports: None Cardiovascular Surgical History: Reports: None Musculoskeletal Surgical History: Reports: Other (See Below) Other Musculoskeletal Surgeries/Procedures:: right foot surgery Social & Family History - Family History Family Medical History: Unobtainable - Tobacco Use Smoking Status *Q: Former Smoker Years of Tobacco use: 40 Used Tobacco, but Quit: Yes Month/Year Tobacco Last Used: 01/21/2019 - Caffeine Use Caffeine Use: Reports: Coffee Caffeine Use Comment: daily coffee consumption - Recreational Drug Use Recreational Drug Use: No ED ROS GENERAL - Review of Systems Review Of Systems: Unable To Obtain (confusion unable to follow conversation) ED EXAM, NEURO - Physical Exam Exam: See Below Exam Limited By: Altered Mental Status General Appearance: Alert, WD/WN, Anxious (tearful) Eye Exam: Bilateral Eye: EOMI, PERRL Ears: Normal External Exam, Normal Canal, Hearing Grossly Normal, Normal TMs Nose: Normal Inspection, Normal Mucosa, No Blood Throat/Mouth: Normal Inspection (dry mouth), Normal Lips, Normal Teeth, Normal Gums, Normal Oropharynx, Normal Voice, No Airway Compromise Head Exam: Normocephalic Neck: Normal Inspection, Supple, Non-Tender, Full Range of Motion Respiratory/Chest: Lungs Clear, Normal Breath Sounds Cardiovascular: Regular Rate, Rhythm GI/Abdominal: Normal Bowel Sounds, Soft, Non-Tender, No Organomegaly, No Distention, No Abnormal Bruit, No Mass EKG INTERPRETATION EKG Date: 01/31/19 Time: 21:06 Rhythm: NSR [place]: LAD-Left [place] Deviation P-Wave: Present QRS: Normal ST-T: Other (subtle flatten T waves in V1) QT: Normal (464) Comparison: NA - No Prior EKG Course - Vital Signs Last Recorded V/S: Last Vital Signs Temp 36.2 C 01/31/19 20:41 Pulse 80 01/31/19 21:58 Resp 15 01/31/19 21:58 BP 141/93 H 01/31/19 21:58 Pulse Ox 95 01/31/19 21:58 - Orders/Labs/Meds Orders: Active Orders 24 hr Category Date Time Status Cardiac Monitoring [RC] .As Directed Care 01/31/19 20:49 Active EKG Documentation Completion [RC] ASDIRECTED Care 01/31/19 20:51 Active Peripheral IV Care [RC] . DIRECTED Care 01/31/19 20:51 Active CXR [Chest 2V] [CR] Stat Exams 01/31/19 22:17 Taken UA W/MICROSCOPIC [URIN] Stat Lab 01/31/19 22:09 Ordered Iopamidol [Isovue-300 (61%)] Med 01/31/19 21:15 Active 100 ml IV . DIRECTED Sodium Chloride 0.9% [Normal Saline] 80 ml Med 01/31/19 21:15 Active IV ASDIRECTED Sodium Chloride 0.9% [Saline Flush] Med 01/31/19 20:50 Active 10 ml FLUSH ASDIRECTED PRN fentaNYL [Duragesic] Med 01/31/19 23:00 Active 12 mcg TRDERM Q72H Peripheral IV Insertion Adult [OM.PC] Urgent Oth 01/31/19 20:49 Ordered EKG 12 Lead [EK] Routine Ther 01/31/19 20:49 Ordered Medication Orders Fentanyl (Duragesic) 12 mcg TRDERM Q72H LEOBARDO Last Admin: 01/31/19 23:11 Dose: 12 mcg Sodium Chloride (Normal Saline) 80 mls @ 3 mls/sec IV ASDIRECTED LEOBARDO Last Admin: 01/31/19 21:30 Dose: 3 mls/sec Iopamidol (Isovue-300 (61%)) 100 ml IV . DIRECTED LEOBARDO Last Admin: 01/31/19 21:30 Dose: 100 ml Sodium Chloride (Saline Flush) 10 ml FLUSH ASDIRECTED PRN PRN Reason: Keep Vein Open Last Admin: 01/31/19 21:30 Dose: 10 ml Labs: Laboratory Tests 01/31/19 01/31/19 01/31/19 Range/Units 21:05 21:05 21:05 WBC 9.7 (4.5-11.0) K/uL RBC 4.06 (3.30-5.50) M/uL Hgb 12.4 (12.0-15.0) g/dL Hct 34.3 L (36.0-48.0) % MCV 85 (80-98) fL MCH 31 (27-31) pg MCHC 36 (32-36) % Plt Count 388 (150-400) K/uL Neut % (Auto) 69 H (36-66) % Lymph % (Auto) 14 L (24-44) % [place] % (Auto) 7 H (2-6) % Eos % (Auto) 9 H (2-4) % Baso % (Auto) 1 (0-1) % Sodium 121 L (140-148) mmol/L Potassium 3.6 (3.6-5.2) mmol/L Chloride 85 L (100-108) mmol/L Carbon Dioxide 29 (21-32) mmol/L Anion Gap 10.6 (5.0-14.0) mmol/L BUN 11 (7-18) mg/dL Creatinine 0.5 L (0.6-1.0) mg/dL Est Cr Clr Drug Dosing 97.00 mL/min Estimated GFR (MDRD) > 60 (>60) Glucose 125 H (74-106) mg/dL Calcium 8.8 (8.5-10.1) mg/dL Total Bilirubin 0.4 (0.2-1.0) mg/dL AST 25 (15-37) U/L ALT 34 (12-78) U/L Alkaline Phosphatase 104 (46-116) U/L Total Protein 6.6 (6.4-8.2) g/dL Albumin 3.4 (3.4-5.0) g/dL Globulin 3.2 (2.3-3.5) g/dL Albumin/Globulin Ratio 1.1 L (1.2-2.2) Lipase 74 (73-393) U/L Meds: Medications Generic Name Dose Route Start Last Admin Trade Name Freq PRN Reason Stop Dose Admin Fentanyl 12 mcg 01/31/19 23:00 01/31/19 23:11 Duragesic TRDERM 12 mcg Q72H LEOBARDO Administration Sodium Chloride 80 mls @ 3 mls/sec 01/31/19 21:15 01/31/19 21:30 Normal Saline IV 3 mls/sec ASDIRECTED LEOBARDO Administration Iopamidol 100 ml 01/31/19 21:15 01/31/19 21:30 Isovue-300 (61%) IV 100 ml . DIRECTED LEOBARDO Administration Sodium Chloride 10 ml 01/31/19 20:50 01/31/19 21:30 Saline Flush FLUSH 10 ml ASDIRECTED PRN Administration Keep Vein Open Discontinued Medications Generic Name Dose Route Start Last Admin Trade Name Freq PRN Reason Stop Dose Admin Acetaminophen 650 mg 01/31/19 22:03 01/31/19 22:14 Tylenol PO 01/31/19 22:04 650 mg NOW ONE Administration Fentanyl 50 mcg 01/31/19 22:03 01/31/19 22:14 Sublimaze IVPUSH 01/31/19 22:04 50 mcg ONETIME ONE Administration Ketorolac Tromethamine 30 mg 01/31/19 22:30 01/31/19 22:53 Toradol IVPUSH 01/31/19 22:31 30 mg ONETIME ONE Administration Lorazepam 1 mg 01/31/19 22:34 01/31/19 22:53 Ativan PO 01/31/19 22:35 1 mg ONETIME ONE Administration - Radiology Interpretation Free Text/Narrative:: CT Head w and w/o contrast: 1. No acute intracranial abnormality. 2. Normal Brain parenchymal morphology. 3. No abnormal enhancement of enhancing lesions. No evidence of intracranial metastases. CXR PA/LAT: Right lower lobe density nodule noted. No acute cardiopulmonary findings noted. - Re-Assessments/Exams Free Text/Narrative Re-Assessment/Exam: CHART REVIEW FOR PREVIOUS HOSPITALIZATION NOTED FOLLOWS: Ita presented to the emergency room with severe left-sided chest pain. She had been seen earlier in the day in the clinic and diagnosed with a fracture of the fifth rib on the left side. She initially went home with pain medications hoping to be managed as an outpatient. Unfortunately her pain worsened and she needed further evaluation. Given the severity of her pain on arrival a CT scan of the chest was performed. This showed fractures of ribs 5 through 7 with minimal displacement. The patient did not report a history of trauma but did hear a crack while she was twisting earlier in the day about the time the pain became very severe. Also noted on the CT scan was a spiculated mass in the right upper lobe and a cystic mass in the tail of the pancreas. Both were concerning for malignancy. Laboratory studies revealed hyponatremia with a sodium level of 120. The patient was admitted to the hospital for pain control. She received as needed oxycodone and as needed fentanyl for severe pain overnight. She received IV fluids overnight. The morning after admission she is reporting ongoing severe pain in the left side of her chest, however pain is a little better than at the time of admission. Her vital signs have all been stable. Throughout the next 24 hours her condition remained stable. She did report increasing cough as well as some sputum production. I became suspicious for bronchitis at this point and did start her on doxycycline. She also became hypoxic and did develop wheezing. She was started on 20 mg of prednisone daily to help with both the bronchitis and rib pain. This medication did seem to help calm her pain down a fair amount over the next couple of days. Her sodium level decreased slightly and then remained relatively stable between 115 and 120. She has been euvolemic and did not respond to fluid challenges. I suspect the low sodium is related to SIADH from her probable cancer/cancers. We did perform an MRI of the abdomen to further investigate the pancreatic mass. 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 This was 1.8 cm in diameter. Also noted were innumerable small lesions in the liver concerning for metastatic disease. We do not have the capability for biopsy of the intra-abdominal lesions here. We do not have PET/ CT available here so no further workup for these lesions was undertaken. I have a strong concern that she has a primary pancreatic cancer with spread to the liver. She may have either metastatic disease to the lung or probably more likely a primary lung cancer as well with a 2 cm spiculated mass noted in the right upper lobe. Regarding the rib fractures, her pain control has been improving. We did start her on a fentanyl patch and have continued to utilize as needed oxycodone. She is feeling much better with the antibiotics and steroids were used to treat her bronchitis. She has completed a three-day burst of steroids and these will be discontinued so we don't further exacerbate her diabetes which is normally well controlled. Her sodium level has remained stable but is low. 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 She is moving well and feels comfortable going home at this time. She is not requiring supplemental oxygen. Pain is fairly well-controlled with the patch and pill combination. She would benefit from early follow-up next week to recheck her sodium. She was interested in a referral to the [facility] for oncology care. She will be going down there in approximately 2 weeks for consultation and biopsy before seeing the oncology team once a formal tissue diagnosis of cancer has been made. - Patient Instructions Diet: Diabetic Diet Activity: As Tolerated Showering/Bathing: May Shower Notify Provider of: Fever, Increased Pain, Nausea and/or Vomiting Other/Special Instructions: 1. You were in the hospital for management of pain related to multiple rib fractures on the left side. Pain control measures include as needed acetaminophen, as needed ibuprofen, oxycodone 10 mg every 6 hours as needed as well as a fentanyl patch which will be changed every 72 hours. You may increase your activity as tolerated. You should not drive while you are taking narcotic pain medications. 2. Your sodium level was noted to be low during the hospital stay. I suspect this is related to SIADH (syndrome of inappropriate antidiuretic hormone) caused by your cancer. I have started to meclocycline to help slowly raise this level. You should have your level rechecked during your follow-up in the next 1-2 weeks. 3. During the hospital stay we discovered a right upper lobe mass concerning for cancer as well as a mass in your pancreas that is also concerning for cancer. There are abnormalities in your liver on the MRI that are concerning for metastatic cancer. I will be sending information to the [facility] for a referral to receive cancer treatment. They should be contacting you in the near future with an appointment and further information. 4. Follow up with your primary care in the next 1-2 weeks. You should have your sodium level rechecked at that time. 01/31/19 22:12 Free Text/Narrative Re-Assessment/Exam: Updated family regarding laboratory studies at this time. Patient's thinking is much clearer during visit at this time. Son states patient has slept 3 hours in the last 3 night and not eaten much for food. Ativan 1mg offered and Toradol for headache/migraine. Patient is currently on antibiotic for bronchitis. CXR and UA ordered for further evaluation of confusion to R/O infection. 01/31/19 22:20 Departure - Departure Time of Disposition: 23:15 Disposition: Home, Self-Care 01 Clinical Impression: Confusion and disorientation, Confusion with nonfocal neurological examination , Psychosis, transient - Discharge Information Prescriptions: LORazepam [Ativan] 1 mg PO Q4H PRN 10 Days #20 tablet PRN Reason: Anxiety Instructions: Confusion, Psychosis, Insomnia, Delirium Referrals: Cesar Iglesias MD [Primary Care Provider] - (Go To appointment Thursday as scheduled ) Forms: ED Department Discharge Additional Instructions: 1. STOP Flexeril while taking Ativan. 2. Ativan 1mg every 4-6 hours as needed for anxiety and difficulty sleeping. 3. Fentanyl 12 mcg patch placed tonight, leave in place for 72 hours pending insurance approval. 4. Continue Tylenol for mild pain and Oxycodone for moderate to severe pain. 5. Continue Ibuprofen 600-800 mg every 6 hrs with food for pain and swelling. 6. Go To clinic appointment scheduled on Thursday this week. 7. Go to [facility] appointment schedule in the next 1-2 weeks. 8. Try to sleep minimum of 8 hours per night and eat regular meals to prevent recurrent transient psychosis due to anxiety, insomnia and worry about new medication concerns. - Problem List & Annotations (1) Psychosis, transient SNOMED Code(s): 901686238 Code(s): F09 - UNSP MENTAL DISORDER DUE TO KNOWN PHYSIOLOGICAL CONDITION Status: Acute Current Visit: Yes Annotation/Comment:: secondary to anxiety due to recent cancer diagnosis, insomnia, unable to care for self and poor appetite (2) Anxiety disorder due to medical condition SNOMED Code(s): 12814024 Code(s): F06.4 - ANXIETY DISORDER DUE TO KNOWN PHYSIOLOGICAL CONDITION Status: Acute Current Visit: Yes (3) Confusion with nonfocal neurological examination SNOMED Code(s): 81686645, 326973771 Code(s): R41.0 - DISORIENTATION, UNSPECIFIED Status: Acute Current Visit : Yes (4) Hyponatremia with normal extracellular fluid volume SNOMED Code(s): 63422882 Code(s): E87.1 - HYPO-OSMOLALITY AND HYPONATREMIA Status: Acute Current Visit: No (5) Acute bronchitis SNOMED Code(s): 96299460 Code(s): J20.9 - ACUTE BRONCHITIS, UNSPECIFIED Status: Acute Current Visit: No Qualifiers: Bronchitis organism: unspecified organism Qualified Code(s): J20.9 - Acute bronchitis, unspecified (6) Cystic mass of pancreas SNOMED Code(s): 26715639 Code(s): K86.2 - CYST OF PANCREAS Status: Acute Priority: Medium Current Visit: No Annotation/Comment:: probable cystic pancreatic cancer - My Orders Last 24 Hours: My Active Orders 01/31/19 20:49 Cardiac Monitoring [RC] .As Directed Peripheral IV Insertion Adult [OM.PC] Urgent EKG 12 Lead [EK] Routine 01/31/19 20:50 Sodium Chloride 0.9% [Saline Flush] 10 ml FLUSH ASDIRECTED PRN 01/31/19 20:51 EKG Documentation Completion [RC] ASDIRECTED Peripheral IV Care [RC] . DIRECTED 01/31/19 21:15 Iopamidol [Isovue-300 (61%)] 100 ml IV . DIRECTED Sodium Chloride 0.9% [Normal Saline] 80 ml IV ASDIRECTED 01/31/19 22:09 UA W/MICROSCOPIC [URIN] Stat 01/31/19 22:17 CXR [Chest 2V] [CR] Stat 01/31/19 23:00 fentaNYL [Duragesic] 12 mcg TRDERM Q72H - Assessment/Plan Last 24 Hours: My Active Orders 01/31/19 20:49 Cardiac Monitoring [RC] .As Directed Peripheral IV Insertion Adult [OM.PC] Urgent EKG 12 Lead [EK] Routine 01/31/19 20:50 Sodium Chloride 0.9% [Saline Flush] 10 ml FLUSH ASDIRECTED PRN 01/31/19 20:51 EKG Documentation Completion [RC] ASDIRECTED Peripheral IV Care [RC] . DIRECTED 01/31/19 21:15 Iopamidol [Isovue-300 (61%)] 100 ml IV . DIRECTED Sodium Chloride 0.9% [Normal Saline] 80 ml IV ASDIRECTED 01/31/19 22:09 UA W/MICROSCOPIC [URIN] Stat 01/31/19 22:17 CXR [Chest 2V] [CR] Stat 01/31/19 23:00 fentaNYL [Duragesic] 12 mcg TRDERM Q72H
[2019-01-31] MEDS ORDERED: fentaNYL 100 MCG/2 ML SDV IVPUSH ONE (22:03)
[2019-01-31] MEDS ORDERED: Acetaminophen 325 MG Tab PO ONE (22:03)
[2019-01-31] MEDS ORDERED: Ketorolac 30 MG/ML SDV IVPUSH ONE (22:30)
[2019-01-31] MEDS ORDERED: LORazepam 1 MG Tab PO ONE (22:34)
--- NOTE | 2019-01-31 22:44 | CRLCT ---
INDICATION: Acute confusion. History of metastatic pancreatic cancer. COMPARISON: None. TECHNIQUE: CT of the head without and with IV contrast (is series 301 100 cc). FINDINGS: Normal brain parenchymal morphology. No acute intracranial hemorrhage, acute infarct, mass effect, or fracture. No abnormal enhancement or enhancing lesions. Normal calvarium and skull base. Visualized paranasal sinuses and mastoid air cells are clear. Normal orbits bilaterally. IMPRESSION: 1. No acute intracranial abnormality. 2. Normal brain parenchymal morphology. 3. No abnormal enhancement or enhancing lesions. No evidence of intracranial metastases Dictated by Ron Quintero MD @ 01/31/2019 10:42:27 PM Please note that all CT scans at this facility use dose modulation, iterative reconstruction, and/or weight-based dosing when appropriate to reduce radiation dose to as low as reasonably achievable. Dictated by: Ron Quintero MD @ 01/31/2019 22:42:34 (Electronically Signed)
[2019-01-31] MEDS ORDERED: fentaNYL 12 MCG/HR Transdermal Patch TRDERM SCH (23:00)
--- NOTE | 2019-01-31 23:29 | CRLCR ---
INDICATION: Confusion COMPARISON: CT of the chest from 01/21/2019. FINDINGS: PA and lateral views of the chest were obtained. There is new mild patchy atelectasis in the left lateral lung base. Again seen is a mild left lateral pleural hematoma consistent with the known multiple acute left lateral rib fractures. The rest of the chest is clear. There is no sign of a pneumothorax. The heart remains normal in size. Again seen are sternal wires from median sternotomy. Surgical clips are again seen in the superior mediastinum. The mediastinum is otherwise normal in appearance. The osseous structures are normal in appearance for the patient`s age. IMPRESSION: New mild patchy left lateral basilar atelectasis. Stable mild left lateral pleural hematoma related to multiple known acute left lateral rib fractures. Dictated by Kareem Marcus MD @ Jan 31 2019 11:25PM Signed by Dr. Kareem Marcus @ Jan 31 2019 11:28PM
== END 2019-01-31 23:20 | disposition home or self-care (01) ==
LOC: JP.ED 20:18
DX: R41.0 Disorientation, unspecified (principal); F23 Brief psychotic disorder; E11.9 Type 2 diabetes mellitus without complications; E78.00 Pure hypercholesterolemia, unspecified; E03.9 Hypothyroidism, unspecified; M19.90 Unspecified osteoarthritis, unspecified site; Z87.891 Personal history of nicotine dependence; Z88.1 Allergy status to other antibiotic agents; Z88.8 Allergy status to other drugs, medicaments and biological substances; Z79.84 Long term (current) use of oral hypoglycemic drugs; Z79.899 Other long term (current) drug therapy
CPT/HCPCS: 36415; 70470; 71046; 80053; 83690; 85025; 93005; 96374; 96375; 99285; A9270; J1885; J3010; J7030; Q9967